=== PATIENT | male | born 1955 | race Caucasian/White ===

== ENCOUNTER 2016-08-14 12:33 | Outpatient (CLI) | payer MEDICARE, OTHER ==
[~2016-08-14] VITALS: Ht 167.6 cm; Wt 85.5 kg
[~2016-08-14 12:33] MED LIST: AGM875T PO; ASP325T PO; ASP81TEC; ASPI-586 PO; ATOR40TA70 PO; B12; B12 PO; CALC-80 PO; CALC600T; CALC600T PO; CEPH500C PO; CHLO500T2; CLOP75TA; CLPD75T PO; CYCL10TA9; D-3; D-3 PO; DEXL60CA3; DOCU100T7 PO; DULO60CA6; DULO60CA6 PO; FENO134C PO; FENO135C PO; GABA800T2 PO; HYDR-623; ISM60TCR PO; ISOS30TA3 PO; L.AC1CAP6 PO; LACT1TAB19 PO; LAMO100T65 PO; LEVE10006 PO; LEVE500T6 PO; LOVAZA 1 GM; METO25TA2 PO; MTP25TSR; MULT-301 PO; MULT-608; MULTIVITAMIN PO; MV,C1TAB21 PO; NAPR-248; NF-LOVAZAC; NF-LOVAZAC PO; NITR0.4T SL; NORCO 10/325; OXYC-12 PO; OXYC-309 PO; OXYC15TA79 PO; PANT40TA PO; POLY119P PO; PRAS10TA6 PO; PROP1TAB77; RANEXA PO; RANO10003 PO; SERT50TA9 PO; TOPI200T19 PO; TPR100T; TPR100T PO; UBIDECARENONE PO; [UNRECOGNIZED DRUG - CODE] PO; [UNRECOGNIZED DRUG - OTHER] PO
--- OUTSIDE RECORDS SUMMARY | 2016-08-14 12:36 | XMS REPORT | Continuity of Care Document ---
Author Author [facility] Organization [facility] Address Unknown Phone Unavailable Care Team Providers Care Alignment Mechanic Name Role Phone TOBIAS DEGROOT DO PCP Insurance Providers Payer Name Policy Number Subscriber Name Relationship [employer] [id number] Diamond Gómez Jr 18 Self / Same As Patient Enter Insurance Name [id number] Diamond Gómez Jr 18 Self / Same As Patient Advance Directives Directive Response Recorded Date/Time Advance Directives Yes 02/11/16 12:00pm Health Care Power of Orchestra Teacher No 02/11/16 12:00pm Organ Donor Yes 02/11/16 12:00pm Resuscitation Status Full Code 02/11/16 12:00pm Problems Active Problems Medical Problem Onset Date Status Dog bite Unknown Acute Puncture wound - injury Unknown Acute Medications Current Home Medications Medication Dose Units Route Directions Days/Qty Instructions Start Date Topiramate 100 Mg 100 Mg Oral Give Every 12 Hrs On Schedule 02/07/11 Fenofibrate (Lofibra) 134 Mg 134 Mg Oral Daily 07/01/13 Pantoprazole Sodium 40 Mg 40 Mg Oral Daily 07/01/13 Cyanocobalamin 2,000 Mcg 2,000 Mcg Oral Daily 12/04/13 Polyethylene Glycol 119 Gm 17 Gm Oral Bedtime as needed for Constipation PRN CONSTIPATION 12/04/13 Aspirin 81 Mg 81 Mg Oral Daily 06/21/15 Oxycodone Hcl 15 Mg 15 Mg Oral As Needed 06/21/15 Multivitamin 1 Each 1 Each Oral Daily 06/21/15 Sertraline Hcl 50 Mg 50 Mg Oral Daily 06/21/15 Ranolazine 1,000 Mg 1,000 Mg Oral Twice A Day 01/31/16 Nitroglycerin 0.4 Mg 0.4 Mg Sublingual As Needed as needed for Chest Pain 01/31/16 Sanju & Charles Matthewslactis 1 Each 1 Each Oral Daily 01/31/16 Levetiracetam 500 Mg 500 Mg Oral Twice A Day 01/31/16 Cephalexin 500 Mg 1 Cap Oral Three Times A Day 02/11/16 Past Home Medications Medication Directions Ordered Status [Lovaza 1 Gm] , 06/09/08 Discontinued [[place] 10/325] , 06/09/08 Discontinued Topiramate 100 Mg Tablet, 06/09/08 Discontinued Ecjdf-6-Awcp Ethyl Esters 1 Gm Capsule, 01/24/09 Discontinued Acetaminophen/Hydrocodone Bitart 1 Tab Tablet, 01/24/09 Discontinued Dexlansoprazole 60 Mg Cap., 01/24/09 Discontinued Metoprolol Succinate (Metoprolol Er 25MG) 25 Mg Tab, 01/24/09 Discontinued Cyclobenzaprine Hcl (Flexeril) 10 Mg Tablet, 01/24/09 Discontinued Chlorzoxazone 500 Mg Tablet, 01/24/09 Discontinued Naproxen 500 Mg Tablet., 01/24/09 Discontinued Propoxyphene Hcl/Acetaminophen 1 Tab Tablet, 01/24/09 Discontinued Fenofibric Acid (Choline) 135 Mg Capsule., 135 Mg Oral Daily 12/01/09 Discontinued Isosorbide Mononitrate (Imdur) 60 Mg Tab.sr.24h, 1 Each Oral Daily 12/01/09 Discontinued Pantoprazole Sodium 40 Mg Tablet., 40 Mg Oral Daily 12/01/09 Discontinued Isosorbide Mononitrate (Imdur) 30 Mg Tab.sr.24h, 1 Each Oral Bedtime Discontinued Aspirin 325 Mg Tab, 325 Mg Oral Daily 02/07/11 Discontinued Clopidogrel Bisulfate 75 Mg Tablet, 1 Each Oral Daily 02/07/11 Discontinued Duloxetine Hcl 60 Mg Capsule., 60 Mg Oral Daily 02/07/11 Discontinued Isosorbide Mononitrate (Imdur) 60 Mg Tab.sr.24h, 60 Mg Oral Daily 02/07/11 Discontinued Metoprolol Tartrate (Lopressor) 25 Mg Tablet, 25 Mg Oral Daily 02/07/11 Discontinued Oxycodone Hcl/Acetaminophen 1 Each Tablet, 2 Tab Oral Every 4HRS as needed for Pain 02/07/11 Discontinued Calcium Carbonate 600 Mg Tablet, 600 Mg Oral Daily 02/07/11 Discontinued [Multivitamin] , 1 Oral Daily 02/07/11 Discontinued Wehvr-7-Bhwg Ethyl Esters 1 Gm Capsule, 1 Each Oral Four Times Daily Discontinued [B12] , 1000 Mg Oral Daily 02/07/11 Discontinued [D-3] , 2000 Units Oral Daily 02/07/11 Discontinued Prasugrel Hydrochloride 10 Mg Tablet, 10 Mg Oral Daily 07/01/13 Discontinued Lamotrigine 100 Mg Tab.er.24, 150 Mg Oral Twice A Day 07/01/13 Discontinued Calcium Carbonate/Vitamin D3 1 Each Tablet, 1 Tab Oral Daily 07/01/13 Discontinued Atorvastatin Calcium 40 Mg Tablet, 40 Mg Oral Daily 07/01/13 Discontinued Amoxicillin/Clavulanate K 875 Mg Tab, 1 Tab Oral Twice A Day 07/01/13 Discontinued Gabapentin 800 Mg Tablet, 800 Mg Oral Twice A Day 12/04/13 Discontinued [Ranexa] , 500 Mg Oral Twice A Day 12/04/13 Discontinued [Coq-10/ L-Carnitine] , 200 Mg Oral Daily 12/04/13 Discontinued Mv,Ca,Min/Iron Fum/Fa/Lyco/Lut 1 Each Tablet, 1 Tab Oral Daily 12/04/13 Discontinued Lactobacillus Acidophilus 1 Each Tablet, 1 Tab Oral Daily 12/04/13 Discontinued Docusate Sodium 100 Mg Tablet, 100 Mg Oral Bedtime as needed for Constipation 12/04/13 Discontinued Oxycodone Hcl/Acetaminophen 1 Each Tablet, 1-2 Tab Oral Q4-6HR as needed for Pain 12/11/13 Discontinued Levetiracetam 1,000 Mg Tablet, 1000 Mg Oral Twice A Day 01/31/16 Discontinued Social History Social History Problem Response Recorded Date/Time Alcohol Use Denies Use 06/23/2015 10:40am Recreational Drug Use No 06/23/2015 10:40am Recent Foreign Travel No 12/10/2013 8:30am Recent Infectious Disease Exposure No 12/10/2013 8:30am Hospitalization with Isolation Denies 12/13/2013 2:28pm Sexually Transmitted Disease No 02/11/2016 12:00pm HIV/AIDS No 02/11/2016 12:00pm Smoking Status Never a Smoker 02/11/2016 12:00pm Sexually Transmitted Disease No 02/11/2016 12:00pm Hospitalization with Isolation Denies 12/13/2013 2:28pm Hx Sexually Transmitted Disorders No 01/31/2011 10:11am Query Response Start Date Stop Date Smoking Status Never a Smoker Hospital Discharge Instructions No hospital discharge instructions. Plan of Care Discharge Date 02/11/16 4:25pm Instructions/Education Provided ANESTHESIA INSTRUCTIONS POSTOP DR. DAUGHERTY-POST OP INSTRUCTIONS Prescriptions See Medication Section Functional Status No functional status results. Allergies, Adverse Reactions, Alerts Allergen Type Severity Reaction Status Last Updated Lamotrigine Allergy Intermediate RASH Active 06/21/15 TUNA Allergy Severe THROAT SWELLS Active 06/21/15 Immunizations No immunization records. Vital Signs Acute Vital Signs Vital Response Date/Time Temperature (Fahrenheit) 97.3 degrees F (97.6 - 99.5) 02/11/2016 4:25pm Temperature (Calculated Celsius) 36.33430 degrees C (36.4 - 37.5) 02/11/2016 4:10pm Temperature Source Temporal 02/11/2016 4:25pm Pulse Rate (adult) 65 bpm (60 - 90) 02/11/2016 4:25pm Respiratory Rate 18 bpm (12 - 24) 02/11/2016 4:25pm O2 Sat by Pulse Oximetry 98 % (88 - 100) 02/11/2016 4:25pm Blood Pressure 115/71 mm Hg 02/11/2016 4:25pm Blood Pressure Mean 102 mm Hg 02/11/2016 12:00pm Pain Numeric Pain Scale 2 02/11/2016 4:25pm Pain Intensity 0 02/11/2016 4:10pm Height (Feet) 5 feet 02/11/2016 12:00pm Height (Inches) 6.00 inches 02/11/2016 12:00pm Height (Calculated Centimeters) 167.311532 cm 02/11/2016 12:00pm Weight (Pounds) 188 pounds 02/11/2016 12:00pm Weight (Ounces) 7.0 oz 02/11/2016 12:00pm Weight (Calculated Grams) 44068.81 gm 02/11/2016 12:00pm Weight (Calculated Kilograms) 85.035377 kilograms 02/11/2016 12:00pm Calculated BMI 30.4 02/11/2016 12:00pm Capillary Refill Capillary Refill Less Than 3 Seconds 02/11/2016 12:00pm Results Pending Microbiology Results Procedure Source Collection Date/Time Procedures Procedure Status Date Provider(s) Correction of hammer toe of both feet Completed 02/11/16 JESUS DAUGHERTY DPM Encounters Encounter Location Arrival/Admit Date Discharge/Depart Date Attending Provider Departed [facility] 02/11/16 11:12am 02/11/16 4:25pm JESUS DAUGHERTY DPM Departed Clinic [facility] 01/31/16 11:23am 01/31/16 12: 23pm JESUS DAUGHERTY DPM
[2016-08-14 13:04] VITALS: BP 110/80
[2016-08-14] MEDS ORDERED: BUPIVACAINE 0.25% 30 ML (SENSORCAINE) VIAL ONE (13:04)
[2016-08-14] MEDS ORDERED: LIDOCAINE 1% INJ 20 ML (XYLOCAINE) VIAL ONE (13:04)
[2016-08-14] MEDS ORDERED: TRIAMCINOLONE ACET (KENALOG-40) 40 MG/ML 1 ML VIAL ONE (13:04)
[2016-08-14 13:26] VITALS: BP 129/87
--- NOTE | 2016-08-14 14:45 | Pain Medicine-Procedure ---
Procedure Pre-Op/Post-Op Diagnosis Diagnosis: disc disorder with radiculopathy, lumbar Indications for Operation Low back pain Attending Surgeon Solomon Procedure Date of Service: Aug 14, 2016 Procedure: Lumbar Epidural Steroid Injection at the L5-S1 level under Fluoroscopic Guidance Procedure: Patient was identified in the holding area. After risks, benefits, and alternatives were discussed with the patient, informed consent was obtained. Patient was brought to the fluoroscopy suite and placed prone on the procedure room table. A time out was performed. Vital signs were monitored throughout the procedure. The patients low back was prepped and draped in the usual sterile fashion. The patients skin was anesthetized using 2% Lidocaine. A Tuohy needle was inserted and advanced to the L5-S1 epidural space under fluoroscopic guidance using the loss of resistance technique and intermittent projection of fluoroscopy. There was no paresthesia with needle placement. The needle position was confirmed in both the AP and lateral view. After negative aspiration 2ml of contrast was injected under live fluoroscopy which showed good spread of the contrast in the epidural space at the appropriate level, there was no intravascular or subarachnoid spread. Again, after negative aspiration for heme or CSF, 2 ml of 0.25% Bupivicaine, 2ml of preservative free normal saline, and 80mg of Kenalog was injected. The needle was removed and a sterile bandage was placed and the patient was transferred to the recovery area in stable condition. After a brief period of observation, patient was discharged to home with no new neurological deficits and no apparent complications. Complications None VENU VIVEROS MD Aug 14, 2016 2:44 pm
== END 2016-08-14 13:27 | disposition home or self-care (01) ==
LOC: CARD 12:33
PROVIDERS: ATTEND Pain Medicine Pain Medicine
DX: M51.16 Intervertebral disc disorders with radiculopathy, lumbar region (principal)
CPT/HCPCS: 62323

== ENCOUNTER → 2016-09-06 | Outpatient (CLI) | payer MEDICARE, OTHER ==
--- NOTE | 2016-09-06 13:56 | Diagnostic Imaging Report ---
Right wrist INDICATION: Wrist pain after a fall. Three views were obtained. FINDINGS: There is no fracture, dislocation, or acute bony abnormality evident. There is mild degenerative disease of the radiocarpal joint. The soft tissues are unremarkable. IMPRESSION: There is no evidence for an acute bony abnormality. Dictated by: Dictated on workstation # [id number]
== END ==
LOC: RAD 10:13
PROVIDERS: ATTEND Family Medicine
DX: M25.531 Pain in right wrist (principal)
CPT/HCPCS: 73110

== ENCOUNTER → 2016-12-25 | Outpatient (CLI) | payer MEDICARE, OTHER ==
--- NOTE | 2016-12-27 17:52 | ELECTROENCEPHALOPATHY REPORT ---
PROCEDURE PHYSICIAN: DANG WONG DATE OF PROCEDURE: 12/25/2016 Mr. Tien Gómez is a 61-year-old male. He has been having sharp, severe pain in the right side of his head from behind up to the eyes that lasted for 3 to 4 days. The pain is affecting the left side as well especially behind the left eye. This study was requested to evaluate for epileptiform activity. The background rhythm consisted of 10 Hz, 50 to 70 microvolts in amplitude, bilaterally symmetrical over the vortex region which was reactive to eye opening. Intermix were few sharp transients in left temporal area. The patient was awake, drowsy and asleep during this recording. Hyperventilation was performed and there was no build-up of diffuse focal slow wave activity. Intermittent photic stimulation was done at various flash frequencies and no photic driving response was seen. IMPRESSION: This EEG is abnormal in awake and sleepy states. The sharp transients as described above could be suggestive of a seizure focus in that area though clinical correlation is suggested. Job ID: [id number] Dictated Date: 12/27/2016 14:07:30 Car Trimmer Date: 12/27/2016 17:47:43 / mc
== END ==
LOC: RT 09:07
PROVIDERS: ATTEND Psychiatry & Neurology Neurology
DX: R56.9 Unspecified convulsions (principal)
CPT/HCPCS: 95819

== ENCOUNTER 2017-11-08 08:44 | Day surgery (SDC) | payer MEDICARE, OTHER ==
[~2017-11-08] VITALS: Ht 167.6 cm; Wt 85.5 kg
[2017-11-08] VITALS (11 sets, daily range): BP systolic 93–135; BP diastolic 61–94
--- OUTSIDE RECORDS SUMMARY | 2017-11-08 08:48 | XMS REPORT | Continuity of Care Document ---
Author Author [facility] Organization [facility] Address Unknown Phone Unavailable Allergies Active Description Code Type Severity Reaction Onset Reported/Identified Relationship to Patient Clinical Status Yes [id number] (TUNA OIL) [id number] (TUNA OIL) Mild N/A 01/24/2009 Yes TUNA TUNA Severe THROAT SWELLS 06/21/2015 Yes lamotrigine [id number] Drug Allergy Moderate RASH 06/21/2015 Yes Fish Containing Products Fish Containing Products Drug Allergy Severe ANAPHYLAXIS TO TUNA 01/03/2016 Yes lamotrigine lamotrigine Drug Allergy Severe RASH 01/03/2016 Medications There is no data. Problems Date Dx Coded Attending Type Code Diagnosis Diagnosed By 01/05/2011 Ot 722.4 CERVICAL DISC DEGEN 01/05/2011 Ot V57.1 PHYSICAL THERAPY NEC 01/31/2011 Ot 311 DEPRESSIVE DISORDER NEC 01/31/2011 Ot 345.90 EPILEPSY UNSPEC W/O MENTION INTRACTABLE 01/31/2011 Ot 401.9 HYPERTENSION NOS 01/31/2011 Ot 414.01 CORONARY ATHEROSCLEROSIS OF [place] CORON 01/31/2011 Ot 435.9 TRANS CEREB ISCHEMIA NOS 01/31/2011 Ot 530.81 ESOPHAGEAL REFLUX 02/07/2011 Ot 278.4 HYPERVITAMINOSIS D 02/07/2011 Ot 311 DEPRESSIVE DISORDER NEC 02/07/2011 Ot 327.23 OBSTRUCTIVE SLEEP APNEA (ADULT) (PEDIATR 02/07/2011 Ot 345.90 EPILEPSY UNSPEC W/O MENTION INTRACTABLE 02/07/2011 Ot 401.9 HYPERTENSION NOS 02/07/2011 Ot 414.01 CORONARY ATHEROSCLEROSIS OF [place] CORON 02/07/2011 Ot 438.89 OTH LATE EFFECT-CEREBROVASCULAR DISEASE 02/07/2011 Ot 530.81 ESOPHAGEAL REFLUX 02/07/2011 Ot 721.0 CERVICAL SPONDYLOSIS 02/07/2011 Ot 721.3 LUMBOSACRAL SPONDYLOSIS 02/07/2011 Ot 728.87 MUSCLE WEAKNESS (GENERALIZED) 02/07/2011 Ot 781.2 ABNORMALITY OF GAIT 02/07/2011 Ot 784.0 HEADACHE 02/07/2011 Ot V57.1 PHYSICAL THERAPY NEC 02/07/2011 Ot V57.21 ENCOUNTER FOR OCCUPATIONAL THERAPY 07/01/2013 PEGGY HARLEY SPANISH TRANSLATOR Ot 881.02 OPEN WOUND OF WRIST 07/01/2013 PEGGY HARLEY SPANISH TRANSLATOR Ot E000.8 OTHER EXTERNAL CAUSE STATUS 07/01/2013 PEGGY HARLEY SPANISH TRANSLATOR Ot E029.2 ROUGH HOUSING AND HORSEPLAY 07/01/2013 PEGGY HARLEY SPANISH TRANSLATOR Ot E849.0 ACCIDENT IN HOME 07/01/2013 PEGGY HARLEY SPANISH TRANSLATOR Ot E906.0 DOG BITE 07/01/2013 PEGGY HARLEY SPANISH TRANSLATOR Ot V06.1 [id number], COMBINED [ 12/13/2013 LOWELL KELLY, ALFONSO Parsons Ot 305.1 TOBACCO USE DISORDER 12/13/2013 LOWELL KELLY, ALFONSO Parsons Ot 414.01 CORONARY ATHEROSCLEROSIS OF [place] CORON 12/13/2013 LOWELL KELLY, ALFONSO Parsons Ot 715.36 LOC OSTEOARTH NOS-L/LEG 12/13/2013 LOWELL KELLY, ALFONSO Parsons Ot V12.54 PERSONAL HX OF TIA, CEREBRAL INFARCTION 12/13/2013 LOWELL KELLY, ALFONSO Parsons Ot V45.82 PERCUTANEOUS TRANSLUM CORON ANGIOPLASTY 03/04/2015 LOWELL KELLY, ALFONSO Parsons Ot 724.4 03/24/2015 LOWELL KELLY, ALFONSO Parsons Ot 724.4 06/23/2015 Ot 721.0 06/23/2015 Ot 780.50 06/23/2015 Ot 786.09 06/23/2015 LOWELL KELLY, ALFONSO Parsons Ot 715.36 06/23/2015 LOWELL KELLY, ALFONSO Parsons Ot 780.79 06/23/2015 LOWELL KELLY, ALFONSO Parsons Ot V57.1 06/23/2015 LOWELL KELLY, ALFONSO Parsons Ot V57.21 06/23/2015 LOWELL KELLY, ALFONSO Parsons Ot V72.63 06/23/2015 LOWELL KELLY, ALFONSO Parsons Ot V72.83 06/23/2015 LOWELL KELLY, ALFONSO Parsons Ot V74.8 06/23/2015 TOBIAS CHRISTY DO S Ot 784.0 06/23/2015 TOBIAS CHRISTY DO S Ot V12.41 06/23/2015 LOWELL KELLY, ALFONSO Parsons Ot 724.4 06/23/2015 LOWELL KELLY, ALFONSO Parsons Ot G40.909 EPILEPSY, UNSP, NOT INTRACTABLE, WITHOUT 06/23/2015 LOWELL KELLY, ALFONSO Parsons Ot M23.8X1 OTHER INTERNAL DERANGEMENTS OF RIGHT KNE 01/31/2016 WILLOW DPM, JESUS Q Ot M20.41 OTHER HAMMER TOE(S) (ACQUIRED), RIGHT FO 01/31/2016 WILLOW DPM, JESUS Q Ot M77.42 METATARSALGIA, LEFT FOOT 01/31/2016 WILLOW DPM, JESUS Q Ot Z01.818 ENCOUNTER FOR OTHER PREPROCEDURAL EXAMIN 01/31/2016 WILLOW DPM, JESUS Q Ot Z11.2 ENCOUNTER FOR SCREENING FOR OTHER BACTER 02/01/2016 WILLOW DPM, JESUS Q Ot M20.41 OTHER HAMMER TOE(S) (ACQUIRED), RIGHT FO 02/01/2016 WILLOW DPM, JESUS Q Ot M77.42 METATARSALGIA, LEFT FOOT 02/01/2016 WILLOW DPM, JESUS Q Ot Z01.818 ENCOUNTER FOR OTHER PREPROCEDURAL EXAMIN 02/01/2016 WILLOW DPM, JESUS Q Ot Z11.2 ENCOUNTER FOR SCREENING FOR OTHER BACTER 02/02/2016 Ot 721.0 CERVICAL SPONDYLOSIS 02/02/2016 Ot 780.50 SLEEP DISTURBANCE NOS 02/02/2016 Ot 786.09 RESPIRATORY ABNORM NEC 02/02/2016 LOWELL KELLY, ALFONSO Parsnos Ot 715.36 LOC OSTEOARTH NOS-L/LEG 02/02/2016 LOWELL KELLY, ALFONSO Parsons Ot 780.79 OTH MALAISE FATIGUE 02/02/2016 ALFONSO ETIENNE MD Ot V57.1 PHYSICAL THERAPY NEC 02/02/2016 ALFONSO ETIENNE MD Ot V57.21 ENCOUNTER FOR OCCUPATIONAL THERAPY 02/02/2016 ALFONSO ETIENNE MD Ot V72.63 PRE-PROCEDURAL LABORATORY EXAMINATION 02/02/2016 ALFONSO ETIENNE MD Ot V72.83 EXAM PRE-OPERATIVE NEC 02/02/2016 ALFONSO ETIENNE MD Ot V74.8 SCREEN-BACTERIAL DIS NEC 02/02/2016 TOBIAS CHRISTY DO S Ot 784.0 HEADACHE 02/02/2016 ORENDER DO, TOBIAS S Ot V12.41 HX BENIGN NEOPLASM/BRAIN 02/02/2016 ALFONSO ETIENNE MD Ot 724.4 LUMBOSACRAL NEURITIS NOS 02/02/2016 ALFONSO ETIENNE MD Ot M23.8X1 OTHER INTERNAL DERANGEMENTS OF RIGHT KNE 02/02/2016 ALFONSO ETIENNE MD Ot Z01.818 ENCOUNTER FOR OTHER PREPROCEDURAL EXAMIN 02/02/2016 ALFONSO ETIENNE MD Ot Z11.2 ENCOUNTER FOR SCREENING FOR OTHER BACTER 02/11/2016 WILLOW DPM, JESUS Q Ot M20.12 HALLUX VALGUS (ACQUIRED), LEFT FOOT 02/11/2016 WILLOW DPM, JESUS Q Ot M20.41 OTHER HAMMER TOE(S) (ACQUIRED), RIGHT FO 02/15/2016 WILLOW DPM, JESUS Q Ot M20.12 HALLUX VALGUS (ACQUIRED), LEFT FOOT 02/15/2016 WILLOW DPM, JESUS Q Ot M20.41 OTHER HAMMER TOE(S) (ACQUIRED), RIGHT FO 08/10/2016 Ot 780.50 SLEEP DISTURBANCE NOS 08/10/2016 Ot 786.09 RESPIRATORY ABNORM NEC 08/10/2016 ALFONSO ETIENNE MD Ot 715.36 LOC OSTEOARTH NOS-L/LEG 08/10/2016 ALFONSO ETIENNE MD Ot 780.79 OTH MALAISE FATIGUE 08/10/2016 ALFONSO ETIENNE MD Ot V57.1 PHYSICAL THERAPY NEC 08/10/2016 ALFONSO ETIENNE MD Ot V57.21 ENCOUNTER FOR OCCUPATIONAL THERAPY 08/10/2016 ALFONSO ETIENNE MD Ot V72.63 PRE-PROCEDURAL LABORATORY EXAMINATION 08/10/2016 ALFONSO ETIENNE MD Ot V72.83 EXAM PRE-OPERATIVE NEC 08/10/2016 ALFONSO ETIENNE MD Ot V74.8 SCREEN-BACTERIAL DIS NEC 08/10/2016 TOBIAS CHRISTY DO Ot 784.0 HEADACHE 08/10/2016 TOBIAS CHRISTY DO Ot V12.41 HX BENIGN NEOPLASM/BRAIN 08/10/2016 ALFONSO ETIENNE MD Ot 724.4 LUMBOSACRAL NEURITIS NOS 08/10/2016 ALFONSO ETIENNE MD Ot M23.8X1 OTHER INTERNAL DERANGEMENTS OF RIGHT KNE 08/10/2016 LOWELL KELLY, ALFONSO Parsons Ot Z01.818 ENCOUNTER FOR OTHER PREPROCEDURAL EXAMIN 08/10/2016 ALFONSO ETIENNE MD Ot Z11.2 ENCOUNTER FOR SCREENING FOR OTHER BACTER 08/14/2016 FELICE KELLY, VENU Latif Ot M51.16 INTERVERTEBRAL DISC DISORDERS W RADICULO 08/29/2016 VENU VIVEROS MD Ot M51.16 INTERVERTEBRAL DISC DISORDERS W RADICULO 09/07/2016 ORENDER DO, TOBIAS S Ot M25.531 PAIN IN RIGHT WRIST 09/08/2016 ORENDER DO, TOBIAS S Ot M25.531 PAIN IN RIGHT WRIST 09/08/2016 ORENDER DO, TOBIAS S Ot M25.531 PAIN IN RIGHT WRIST 10/03/2016 ORENDER DO, TOBIAS S Ot M25.531 PAIN IN RIGHT WRIST 11/02/2016 ORENDER DO, TOBIAS S Ot M25.531 PAIN IN RIGHT WRIST 12/14/2016 ORENDER DO, TOBIAS S Ot M25.531 PAIN IN RIGHT WRIST 12/18/2016 ORENDER DO, TOBIAS S Ot M25.531 PAIN IN RIGHT WRIST 12/27/2016 DANG WONG MD Ot R56.9 UNSPECIFIED CONVULSIONS 01/17/2017 DANG WONG MD Ot R56.9 UNSPECIFIED CONVULSIONS 02/09/2017 DANG WONG MD Ot R56.9 UNSPECIFIED CONVULSIONS Procedures Code Description Performed By Performed On 81.54 TOTAL KNEE REPLACEMENT 12/10/2013 Results Test Result Range CBC - 01/03/16 08:47 MEAN CELL HGB 30.0 pg 27.0-33.0 MEAN CELL HGB CONCENTRATION 34.0 g/dL 32.0-37.0 MEAN CELL VOLUME 88.2 fl 80.0-100.0 RED BLOOD CELL 4.57 m/cumm 4.00-6.00 RED CELL DISTRIBUTION WIDTH 13.9 % 11.0-15.6 WHITE BLOOD CELL 4.8 k/cumm 5.0-10.0 HEMOGLOBIN 13.7 gm/dL 14.0-18.0 HEMATOCRIT 40.3 % 40.0-54.0 PLATELET COUNT 219 k/cumm 150-450 PROTHROMBIN TIME WITH INR - 01/03/16 08:47 INTERNATIONAL NORMAL RATIO 1.0 0.9-1.1 PROTHROMBIN TIME 12.1 sec 10.0-12.9 METABOLIC PANEL, BASIC - 01/03/16 08:47 POTASSIUM 3.9 mmol/L 3.5-5.3 EST GFR (MDRD) > 60 mL/min > 59 ANION GAP 9 mmol/L 5-15 EST CrCl (CG) > 60 mL/min > 59 GLUCOSE 89 mg/dL 70-99 CALCIUM 9.5 mg/dL 8.5-10.1 BLOOD UREA NITROGEN 15 mg/dL 7-20 CREATININE 1.2 mg/dL 0.7-1.3 SODIUM 142 mmol/L 135-148 CHLORIDE 108 mmol/L 98-110 CARBON DIOXIDE 25 mmol/L 21-32 Methicillin resistant Staphylococcus aureus (MRSA) screening culture - 12:15 Methicillin resistant Staphylococcus aureus (MRSA) screening culture NEG NRG CBC W/DIFF - 04/26/17 08:19 EOSINOPHIL # 0.1 k/cumm 0.1-0.5 EOSINOPHIL % 2 % 2-4 GRANULOCYTE # 3.3 k/cumm 2.0-9.0 GRANULOCYTE % 65 % 50-75 LYMPHOCYTE # 1.3 k/cumm 1.0-4.0 LYMPHOCYTE % 25 % 20-30 MEAN CELL HGB 30.3 pg 27.0-33.0 MEAN CELL HGB CONCENTRATION 33.9 g/dL 32.0-37.0 MEAN CELL VOLUME 89.4 fl 80.0-100.0 MONOCYTE # 0.4 k/cumm 0.1-1.0 MONOCYTE % 8 % 4-6 RED BLOOD CELL 4.62 m/cumm 4.00-6.00 RED CELL DISTRIBUTION WIDTH 13.4 % 11.0-15.6 WHITE BLOOD CELL 5.1 k/cumm 5.0-10.0 HEMOGLOBIN 14.0 gm/dL 14.0-18.0 HEMATOCRIT 41.3 % 40.0-54.0 PLATELET COUNT 227 k/cumm 150-450 PROTHROMBIN TIME WITH INR - 04/26/17 08:19 INTERNATIONAL NORMAL RATIO 1.1 0.9-1.1 PROTHROMBIN TIME 12.2 sec 10.0-12.8 METABOLIC PANEL, BASIC - 04/26/17 08:19 POTASSIUM 4.1 mmol/L 3.5-5.3 EST GFR (MDRD) > 60 mL/min > 59 ANION GAP 12 mmol/L 5-15 GLUCOSE 89 mg/dL 70-99 CALCIUM 9.3 mg/dL 8.5-10.1 BLOOD UREA NITROGEN 17 mg/dL 7-20 CREATININE 1.1 mg/dL 0.7-1.3 SODIUM 143 mmol/L 135-148 CHLORIDE 108 mmol/L 98-110 CARBON DIOXIDE 23 mmol/L 21-32 LIPID PANEL - 04/26/17 08:19 CHOLESTEROL/HDL RATIO 4.1 < 5.0 LDL CHOLESTEROL 117 mg/dL < 100 VLDL CHOLESTEROL 21 mg/dL < 30 TRIGLYCERIDES 106 mg/dL < 150 CHOLESTEROL 182 mg/dL < 200 HDL CHOLESTEROL 44 mg/dL > 39 Encounters ACCT No. Visit Date/Time Discharge Status Pt. Type Provider Facility Loc./Unit Complaint [id number] 12/25/2016 09:07:00 12/25/2016 23:59:59 CLS Outpatient DANG WONG MD [facility] RT SEIZURE [id number] 09/06/2016 10:13:00 09/06/2016 23:59:59 CLS Outpatient TOBIAS CHRISTY DO [facility] RAD M25.531 PAIN IN RIGHT WRIST [id number] 08/14/2016 12:33:00 08/14/2016 13:27:00 DIS Outpatient VENU VIVEROS MD [facility] CARD M51.16 [id number] 02/11/2016 11:12:00 02/11/2016 16:25:00 DIS Outpatient SERGIO DAUGHERTY DPMIN Q [facility] [place] RIGHT; HYPERTROPY LEFT [id number] 01/31/2016 11:23:00 01/31/2016 12:23:00 DIS Outpatient SERGIO DAUGHERTY DPMIN Q [facility] PREOP RIGHT [place]; LEFT HYPERTROPHY [id number] 06/23/2015 09:41:00 06/23/2015 14:55:00 DIS Outpatient ALFONSO ETIENNE MD [facility] RIGHT KNEE ADHESIONS [id number] 06/21/2015 13:30:00 06/21/2015 23:59:59 CLS Outpatient ALFONSO ETIENNE MD [facility] PREOP RIGHT KNEE ADHESIONS [id number] 02/11/2015 15:13:00 02/11/2015 23:59:59 CLS Outpatient ALFONSO ETIENNE MD [facility] RAD LUMBAR RADICULOPATHY [id number] 04/01/2014 10:54:00 04/01/2014 23:59:59 CLS Outpatient TOBIAS CHRISTY DO [facility] RAD HX BRAIN TUMOR, CEPHALGIA [id number] 12/10/2013 07:45:00 12/13/2013 14:00:00 DIS Inpatient ALFONSO ETIENNE MD [facility] SURGICAL RIGHT KNEE DJD [id number] 12/04/2013 09:48:00 12/04/2013 23:59:59 CLS Outpatient ALFONSO ETIENNE MD [facility] PREOP RIGHT KNEE DJD [id number] 07/01/2013 15:35:00 07/01/2013 17:30:00 DIS Emergency PEGGY HARLEY APRN [facility] ER DOG BITE; HAND LAC [id number] 11/28/2011 21:00:00 Document Registration [id number] 01/31/2011 09:13:00 Document Registration [id number] 01/26/2011 10:44:00 Document Registration [id number] 01/05/2011 13:31:00 Document Registration [id number] 11/28/2010 09:34:00 Document Registration [id number] 04/26/2017 06:16:00 04/26/2017 20:10:00 DIS Outpatient Sanya KELLY, [facility] & ER E.CVLO [id number] 01/03/2016 08:06:00 01/03/2016 17:30:00 DIS Outpatient Jacquelin KELLY, [facility] & ER E.CVLO [id number] 02/12/2015 02:42:20 ACT Document Registration 07/201708/30/2017 08:42:01 08/30/2017 23:59:59 CLS Outpatient Tobias Christy
[2017-11-08] MEDS ORDERED: HEParin (CATH LAB) 2,000 ML IV ONE (08:51)
[2017-11-08] MEDS ORDERED: NS IV 1000 ML 1,000 ML ONE (08:51)
[2017-11-08] MEDS ORDERED: NS IV 1000 ML 1,000 ML IV SCH ×2 (08:57→12:15)
[2017-11-08 09:26] LABS: HEMOGLOBIN 14.6 G/DL (13.3-17.7); MEAN PLATELET VOLUME 10.4 FL (7.4-10.4); RED BLOOD COUNT 4.93 10^6/uL (4.35-5.85); RED CELL DISTRIBUTION WIDTH 14.9 % (10.0-14.5); WHITE BLOOD COUNT 5.6 10^3/uL (4.3-11.0)
[2017-11-08] MEDS ORDERED: CHOL200025 PO (09:34)
[2017-11-08] MEDS ORDERED: LISI2.5T PO (09:34)
[2017-11-08] MEDS ORDERED: METO-387 PO (09:34)
[2017-11-08] MEDS ORDERED: ATOR40TA PO (09:34)
[2017-11-08 09:38] LABS: INR 1.1 (0.8-1.4)
[2017-11-08] MEDS ORDERED: POLY17PO6 PO (09:40)
[2017-11-08] MEDS ORDERED: DICL100G18 TP (09:40)
[2017-11-08] MEDS ORDERED: [UNRECOGNIZED DRUG - CODE] PO (09:40)
[2017-11-08] MEDS ORDERED: TOPI100T11 PO (09:40)
[2017-11-08] MEDS ORDERED: MULT-35 PO (09:40)
[2017-11-08 09:44] LABS: ALANINE AMINOTRANSFERASE 17 U/L (0-55); ALBUMIN 4.8 GM/DL (3.2-4.5); ALKALINE PHOSPHATASE 67 U/L (40-136); BILIRUBIN,TOTAL 0.7 MG/DL (0.1-1.0); BUN/CREATININE RATIO 15; CALCIUM 9.5 MG/DL (8.5-10.1); CARBON DIOXIDE 21 MMOL/L (21-32); CHLORIDE 111 MMOL/L (98-107); CREATININE SERUM 0.82 MG/DL (0.60-1.30); GFR ESTIMATED > 60; GLUCOSE 92 MG/DL (70-105); POTASSIUM 3.9 MMOL/L (3.6-5.0); SODIUM 142 MMOL/L (135-145); TOTAL PROTEIN 7.3 GM/DL (6.4-8.2)
[2017-11-08] MEDS ORDERED: MIDAZOLAM 5 MG/5 ML (VERSED) VIAL ONE (11:27)
[2017-11-08] MEDS ORDERED: fentaNYL INJECTION 100 MCG/2 ML AMP ONE (11:27)
--- NOTE | 2017-11-08 11:53 | Cardiac Procedure Note-CS/ASA ---
Pre-Procedure Note Pre-Op Procedure Note H&P Reviewed The H&P was reviewed, patient examined and no changes noted. Date H&P Reviewed: November 08, 2017 Time H&P Reviewed: 10:30 Conscious Sedation Pre-Proced Time Reviewed: 10:30 ASA Class: 3 Airway Mallampati Classification: ([place] appropriate class) I. II. III, IV Lungs Heart ASA score ASA 1: a normal healthy patient ASA 2: a patient with a mild systemic disease (mid diabetes, controlled hypertension, obesity ASA 3: a patient with a severe systemic disease that limits activity (angina , COPD, prior Myocardial infarction) ASA 4: a patient with an incapacitating disease that is a constant threat to life (CHF, renal failure) ASA 5: a moribund patient not expected to survive 24 hrs. (ruptured aneurysm) ASA 6: a declared brain patient whose organs are being harvested. For emergent operations, add the letter E after the classification Grade 1 Sedation Plan: Analgesia, Amnesia, Plan communicated to team members, Discussed options with patient/fam, Discussed risks with patient/fam Note The patient is an appropriate candidate to undergo the planned procedure, sedation, and anesthesia. The patient immediately re-assessed prior to indication. Shelton ESTRADA MD November 08, 2017 11:53 am
[2017-11-08] MEDS ORDERED: PATIENT MAY USE OWN MEDS, ALL PO SCH (12:15)
--- NOTE | 2017-11-08 12:15 | Coronary Angiography Report ---
Coronary Angiography Report DATE OF PROCEDURE: 11/08/17 INDICATION: Unstable angina, previous history of TX and PCI. PREOPERATIVE DIAGNOSIS: Unstable angina, previous history of TX and PCI. POSTOPERATIVE DIAGNOSIS: Patent stents, no significant severe CAD. HISTORY: This is a 62-year-old gentleman who has previous history of multiple PCI and TX. He presented to the office with prolonged episode of atypical chest pain. Working diagnosis was unstable angina. Therefore, the patient was scheduled for coronary angiography. PROCEDURES PERFORMED: 1.Coronary angiography. 2.Left heart catheterization. 3. Aortic arch angiography. COMPLICATIONS: None. SPECIMENS: None. ESTIMATED BLOOD LOSS: 10 mL ANESTHESIA: Conscious sedation ANTICOAGULATION: None. CONTRAST: 65 mL. FLUOROSCOPY: 3 minutes. FLOUROSCOPY DOSE: [id number]. PROCEDURE DETAILS: The patient is a 62 male and was brought to the drop crew laborer after informed consent was taken. All the risks and complications were explained in detail; this included the risk of bleeding, vascular damage, stroke , TX and even . The patient was draped and prepped in the usual sterile fashion. Access was gained in the right femoral artery with a 5 Czech sheath. Right coronary angiography, left heart catheterization, aortic arch angiogram was done with a JR4 catheter. Left coronary angiography was performed with JL4 catheter. FINDINGS: 1.Left main: Patent. 2.LAD: Patent mid LAD stent with very mild in-stent restenosis. 3.Left circumflex artery: Patent OM1 stent with mild distal edge disease. 4.RCA: Patent stent in the mid RCA with no significant in-stent restenosis. 5.Left heart catheterization: Aortic pressure 98/59 mmHg. LV pressure 91/2 mmHg. LVEDP 8 mmHg. Normal LV function with no wall motion abnormalities. No gradient across the aortic valve. 6. Aortic arch angiogram: No evidence of dissection or aneurysm noted. Patent proximal segments of the brachiocephalic artery, common carotid artery and left subclavian artery. CONCLUSIONS: Patent stents with no significant CAD. Normal LV function. Continue secondary prevention measures. Petros Villalta MD, FACP, FACC, [facility] Interventional Cardiology Shelton VILLALTA MD November 08, 2017 12:15 pm
--- NOTE | 2017-11-08 12:18 | Discharge Inst-Post CATH ---
Discharge Inst-CATH Post Cardiac Cath D/C Inst Follow Up/Plan Dr Villalta in six weeks CARDIAC CATH DISCHARGE INSTRUCTIONS *Hold Metformin for 48 hours post heart cath. ACTIVITY * Go Home directly and rest. * Limit activity of the leg (or wrist if it was used) for 7 days including aerobics, swimming, jogging, bicycling, etc. * Restrict stair-climbing for 7 days if possible, if not, climb up with your non -cath leg, then bring together on the same step. * Avoid lifting, pushing, pulling or excessive movement of the affected extremity for 7 days. * Customary sexual activity may be resumed after 2 days-use caution not to use a position that strains or causes pain to the affected extremity. * No driving for 24 hours. * NO SMOKING. * Avoid straining for bowel movements for 7 days. * Gentle walking on level ground is allowed. * Returning to work will depend on the type of procedure and the results. Your doctor will discuss this with you. CALL YOUR DOCTOR FOR ANY OF THE FOLLOWING: *If bleeding from the puncture site occurs- Apply gentle pressure to site with clean cloth and call your doctor or EMS. * If a knot or lump forms under the skin, increases in size, or causes pain. * If bruising appears to be worsening or moving further down your leg instead of disappearing. * Temperature above 101 F. CARE OF YOUR GROIN INCISION; * Bruising or purple discoloration of the skin near the puncture site is common. * You may shower only, no bathtub bathing for 5 days. Be careful to avoid slipping as your leg may feel stiff. * If a closure device was used on your femoral artery, please see the attached guide regarding care of the device and your leg. * REMOVE the dressing from your groin the next day after your procedure in the shower. CARE OF YOUR WRIST INCISION; * Bruising or purple discoloration of the skin near the puncture site is common. * You may shower. * DO NOT submerge wrist. * Remove dressing in 24 hours. Shelton VILLALTA MD November 08, 2017 12:18 pm
--- NOTE | 2017-11-08 12:20 | Cardiology Discharge Summary ---
Diagnosis/Chief Complaint Date of Admission 11/08/2017 Date of Discharge 11/08/2017 Admission Diagnosis Chest pain, previous history of PCI and CT Final/Discharge Diagnosis Patent stents, no significant obstructive CAD. Chief Complaint/HPI Chief Complaint/HPI This is a 62-year-old gentleman who has previous history of multiple PCI and CT. He complained of chest pain which was typical and prolonged. Coronary angiography was recommended Discharge Summary Procedures Coronary angiography showed patent stent in the mid RCA, mid LAD and OM1. No significant focal obstructive lesion. Normal LV function. Discharge Physical Examination Stable Hospital Course Unremarkable Pending Labs Laboratory Tests 11/08/17 09:20: White Blood Count 5.6, Red Blood Count 4.93, Hemoglobin 14.6, Hematocrit 42, Mean Corpuscular Volume 84, Mean Corpuscular Hemoglobin 30, Mean Corpuscular Hemoglobin Concent 35, Red Cell Distribution Width 14.9, Platelet Count 199, Mean Platelet Volume 10.4, Prothrombin Time 14.0, INR Comment 1.1, Activated Partial Thromboplast Time 32, Sodium Level 142, Potassium Level 3.9, Chloride Level 111, Carbon Dioxide Level 21, Anion Gap 10, Blood Urea Nitrogen 12, Creatinine 0.82, Estimat Glomerular Filtration Rate > 60, BUN/Creatinine Ratio 15, Glucose Level 92, Calcium Level 9.5, Total Bilirubin 0.7, Aspartate Amino Transf (AST/SGOT) 20, Alanine Aminotransferase (ALT/SGPT) 17, Alkaline Phosphatase 67, Total Protein 7.3, Albumin 4.8 Discussion & Recommendations Discussion Discharge instructions were discussed at length. Follow up appt.: Dr. Villalta in 6 weeks. Dicharge Diet: Cardiac Diet Activity as Tolerated: Yes Home Medications Reviewed patient Home Medication Reconciliation performed by pharmacy medication reconciliations measurement and sensing technician and/or nursing. Patients Allergies have been reviewed. Discharge Home Medications: Reviewed and agree with Discharge Medication list on patient's Discharge Instruction sheet Condition at discharge Stable. Instructions to patient/family Dr Villalta in six weeks Shelton VILLALTA MD November 08, 2017 12:20 pm
[2017-11-09] MEDS ORDERED: ASPIRIN E.C. 81 MG (ECOTRIN) TAB PO SCH (09:00)
== END 2017-11-08 16:00 | disposition home or self-care (01) ==
LOC: CATH 08:44 → SURG 12:31 → CATH 16:00
PROVIDERS: ATTEND Internal Medicine Interventional Cardiology
DX: R07.89 Other chest pain (principal); I25.10 Atherosclerotic heart disease of native coronary artery without angina pectoris; Z95.5 Presence of coronary angioplasty implant and graft; E78.1 Pure hyperglyceridemia; E78.5 Hyperlipidemia, unspecified; I10 Essential (primary) hypertension; R42 Dizziness and giddiness; R53.83 Other fatigue; E66.3 Overweight; Z68.30 Body mass index [BMI] 30.0-30.9, adult; Z86.73 Personal history of transient ischemic attack (TIA), and cerebral infarction without residual deficits; Z79.82 Long term (current) use of aspirin; Z79.899 Other long term (current) drug therapy; Z87.891 Personal history of nicotine dependence
CPT/HCPCS: 36221; 36415; 80053; 85027; 85610; 85730; 87081; 93005; 93458

== ENCOUNTER → 2018-02-26 | Outpatient (CLI) | payer MEDICARE, OTHER ==
[~2018-02-26] MED LIST changes: +ATOR40TA PO; +CHOL200025 PO; +DICL100G18 TP; +LISI2.5T PO; +METO-387 PO; +MULT-35 PO; +POLY17PO6 PO; +TOPI100T11 PO; +[UNRECOGNIZED DRUG - CODE] PO
--- NOTE | 2018-02-26 14:02 | Diagnostic Imaging Report ---
INDICATION: Right-sided neck pain. Vertigo. COMPARISON: None FINDINGS: Frontal, lateral, swimmers and odontoid views of the cervical spine were submitted. The cervical spine is visualized up to the C7/T1 level on the lateral projection. There is normal vertebral height and alignment. There is no evidence of fracture or bone destruction. No prevertebral soft tissue swelling is seen. Mild multilevel degenerative changes are noted. The open-mouth view demonstrates normal C1/C2 alignment. IMPRESSION: 1. Normal cervical spine series. 2. Mild multilevel degenerative changes. Dictated by: Dictated on workstation # [id number]
== END ==
LOC: RAD 11:25
PROVIDERS: ATTEND Family Medicine
DX: M47.812 Spondylosis without myelopathy or radiculopathy, cervical region (principal)
CPT/HCPCS: 72040

== ENCOUNTER → 2018-02-28 | Outpatient (CLI) | payer MEDICARE, OTHER ==
[~2018-02-28] MED LIST changes: +CATHETER FLUSH 10 ML SYR IV PRN; +IOHEXOL 350 MG/ML 100 ML (OMNIPAQUE 350) VIAL IV ONE; +NS 250 ML (IVPB) BAG IV ONE; +RECEIVED CONTRAST (Hold Metformin) IV SCH
--- NOTE | 2018-02-28 19:19 | Diagnostic Imaging Report ---
Clinical indication: Patient with headache around scar area from right frontal to right posterior for a while. Patient has vertigo. Patient has history of brain tumor removal. Exam: Axial CT scan of the brain performed without and with 80 cc of Omnipaque 350 IV contrast. Comparison: Head CT without and with IV contrast dated 04/01/2014. MRI of the brain performed without and with IV contrast dated 01/27/2011. Findings: Stable postop changes with right frontal craniectomy and prosthetic flap in place. There is no evidence of abnormal IV contrast enhancement or developing mass in the region. Remainder of the brain parenchyma is unremarkable with normal paez-white matter distinction. The brain parenchymal volume appears appropriate for patient's age. There is no brain herniation or midline shift. There is no hydrocephalus. Basal cisterns are unremarkable. Visualized false pass of Woody vascular structures show no major abnormality. The dural venous sinuses are unremarkable. Paranasal sinuses and temporal bone structures show no significant abnormality. Impression: 1: Stable CT scan of the brain with no evidence of interval acute intracranial process. There is no evidence of developing enhancing mass. L2: Stable postop changes to the right frontal region. Dictated by: Dictated on workstation # [id number]
== END ==
LOC: RAD 16:01
PROVIDERS: ATTEND Family Medicine
DX: R51 Headache (principal); M54.2 Cervicalgia; R42 Dizziness and giddiness; Z85.841 Personal history of malignant neoplasm of brain; Z98.890 Other specified postprocedural states
CPT/HCPCS: 70470

== ENCOUNTER → 2018-06-04 | Outpatient (CLI) | payer MEDICARE, OTHER ==
[~2018-06-04] MED LIST changes: -CATHETER FLUSH 10 ML SYR IV PRN; -IOHEXOL 350 MG/ML 100 ML (OMNIPAQUE 350) VIAL IV ONE; -NS 250 ML (IVPB) BAG IV ONE; -RECEIVED CONTRAST (Hold Metformin) IV SCH
--- NOTE | 2018-06-04 11:46 | Diagnostic Imaging Report ---
INDICATION: Left-sided knee pain, chronic TECHNIQUE: 2 views of the left knee CORRELATION STUDY: None FINDINGS: The joint spaces are maintained. The articular surfaces are smooth and preserved. There is no acute bony abnormality. Suprapatellar edema appears to be present. IMPRESSION: 1. Negative for acute bony abnormality of the knee. Dictated by: Dictated on workstation # [id number]
== END ==
LOC: RAD 10:45
PROVIDERS: ATTEND Pain Medicine Interventional Pain Medicine
DX: M25.562 Pain in left knee (principal)
CPT/HCPCS: 73560

== ENCOUNTER → 2018-06-05 | Outpatient (CLI) | payer MEDICARE, OTHER ==
--- NOTE | 2018-06-05 09:56 | Diagnostic Imaging Report ---
PROCEDURE: MRI left joint lower extremity without contrast. TECHNIQUE: Multiplanar, multisequence MR imaging of the left knee was performed without contrast. COMPARISON: Left knee radiographs from 06/04/2018. INDICATION: Lateral knee pain. FINDINGS: MENISCI Medial meniscus: Horizontal cleavage tear contacting the undersurface of the posterior horn of the medial meniscus. No associated para meniscal cyst or displaced fragments. Lateral meniscus: Normal. LIGAMENTS ACL: Intact. PCL: Intact. MCL: Intact. LCL: The lateral collateral ligamentous complex is intact. EXTENSOR MECHANISM The extensor mechanism is intact. CARTILAGE Medial compartment: Medial compartment articular cartilage is well preserved without focal high-grade chondromalacia. Lateral compartment: The lateral compartment articular cartilage is preserved without high-grade chondromalacia. Patellofemoral compartment: Focal full-thickness chondral fissuring with underlying subchondral cystic change at the patellar apex. BONE Subchondral insufficiency fracture in the periphery of the lateral femoral condyle with surrounding bone marrow edema. No discontinuity of the subchondral bone plate or subchondral collapse. SOFT TISSUE Small Boss's cyst. No knee joint effusion. IMPRESSION: 1. Acute/subacute subchondral insufficiency fracture in the lateral femoral condyle is nondisplaced. 2. Nondisplaced horizontal cleavage tear in the posterior horn of the medial meniscus. 3. Focal full-thickness chondral fissure at the patellar apex with underlying subchondral bone marrow edema/cyst. Remainder of the articular cartilage in the knee is preserved. Dictated by: Dictated on workstation # [id number]
== END ==
LOC: RAD 07:29
PROVIDERS: ATTEND Pain Medicine Interventional Pain Medicine
DX: M84.452A Pathological fracture, left femur, initial encounter for fracture (principal); M23.222 Derangement of posterior horn of medial meniscus due to old tear or injury, left knee
CPT/HCPCS: 73721

== ENCOUNTER 2018-07-04 09:08 | Outpatient (CLI) | payer MEDICARE, OTHER ==
[~2018-07-04] VITALS: Ht 167.6 cm; Wt 82.7 kg
[2018-07-04] MEDS ORDERED: AMIT10TA6 PO (09:25)
[2018-07-04] MEDS ORDERED: CYAN100088 PO (09:25)
[2018-07-04 09:30] VITALS: BP 111/76
== END 2018-07-04 09:49 | disposition home or self-care (01) ==
LOC: PREOP 09:08
PROVIDERS: ATTEND Orthopaedic Surgery
DX: Z01.818 Encounter for other preprocedural examination (principal)
CPT/HCPCS: 87081

== ENCOUNTER 2018-07-10 09:16 | Day surgery (SDC) | payer MEDICARE, OTHER ==
--- NOTE | 2018-06-28 08:21 | HISTORY AND PHYSICAL ---
DATE OF SERVICE: ADMISSION HISTORY AND PHYSICAL DATE OF ADMISSION: 07/10/2018. DATE OF SURGERY: Outpatient surgery on 07/10/2018 for left knee arthroscopy. HISTORY OF PRESENT ILLNESS: The patient is a 62-year-old gentleman with progressive worsening left knee pain. He reports pain in the medial aspect of his knee. He reports pain with activities. He reports pain with twisting and he reports swelling. He has undergone treatment with injections without relief. He underwent an MRI, which shows a posterior horn medial meniscal tear as well as an insufficiency fracture of the lateral femoral condyle. He reports his primary pain is medially; however. Due to functional impairment and failure to improve with conservative measures, the patient elected to proceed with surgical intervention. REVIEW OF SYSTEMS: No chest pain and no shortness of breath. No dysuria. PAST MEDICAL HISTORY: Headaches, seizures, heart disease and stroke. PRIMARY CARE PROVIDER: Dr. Christy. PAST SURGICAL HISTORY: Brain tumor, coronary stent placement, herniorrhaphy, right ankle, right knee, right total knee arthroplasty with revision, bilateral carpal tunnel releases, left shoulder arthroscopy left, ulnar nerve transposition, left clavicle and left forearm. FAMILY HISTORY: Significant for ischemic heart disease. MEDICATIONS: Pantoprazole, aspirin, oxycodone, sertraline, fenofibrate, Mobic, Voltaren, cyclobenzaprine, Depakote, Keppra, MiraLax, prednisone and Imitrex. ALLERGIES: TUNA and LAMOTRIGINE. SOCIAL HISTORY: The patient denies alcohol or tobacco use. RADIOGRAPHS: Reveal no significant degenerative changes. MRI reveals a horizontal cleavage tear of the posterior horn of the medial meniscus. PHYSICAL EXAMINATION: GENERAL: The patient is a well-developed and well-nourished, in no acute distress. HEENT: Normocephalic and atraumatic. Pupils are equal, round and reactive to light. Oropharynx is clear. NECK: Supple. No lymphadenopathy. LUNGS: Clear to auscultation bilaterally. HEART: Regular rate and rhythm. ABDOMEN: Soft, nontender and nondistended. EXTREMITIES: The left knee demonstrates moderate effusion. It is tender along the medial joint line. He has pain in the knee with Saloni. He is minimally tender over the lateral femoral condyle. There is no varus or valgus laxity. Negative anterior and posterior drawer. NEUROLOGIC: He ambulates with a normal heel-to-toe gait. IMPRESSION: Left knee medial meniscus tear, unresponsive to conservative measures. PLAN: Left knee arthroscopy with partial medial meniscectomy. The risks, benefits, options, ramifications and recovery were discussed at length with the patient, he understands and wishes to proceed. Job ID: [id number] DocumentID: [id number] Dictated Date: 06/28/2018 07:54:29 Screening Representative Date: 06/28/2018 08:20:15 Dictated By: ALFONSO ETIENNE MD
[~2018-07-10] VITALS: Ht 167.6 cm; Wt 78.1 kg
[~2018-07-10 09:16] MED LIST changes: +AMIT10TA6 PO; +CYAN100088 PO
[2018-07-10] MEDS ORDERED: LACTATED RINGERS 1,000 ML IV PRN (09:20)
[2018-07-10 09:30] VITALS: BP 145/90
[2018-07-10] MEDS ORDERED: ceFAZolin INJECTION 1,000 MG in NS (IVPB) 50 ML IV ONE (09:30)
[2018-07-10] MEDS ORDERED: fentaNYL INJECTION 100 MCG/2 ML AMP ONE (09:43)
[2018-07-10] MEDS ORDERED: MIDAZOLAM 2 MG/2 ML (VERSED) VIAL ONE (09:43)
[2018-07-10] MEDS ORDERED: morphine PF (DURAMORPH) 10 MG/10 ML AMP ONE (09:52)
[2018-07-10] MEDS ORDERED: BUPIVACAINE 0.25% 30 ML (SENSORCAINE) VIAL ONE (09:52)
--- NOTE | 2018-07-10 10:19 | Progress Note-Pre Operative ---
Pre-Operative Progress Note H&P Reviewed The H&P was reviewed, patient examined and no changes noted. Date Seen by Provider: Jul 10, 2018 Time Seen by Provider: 10:18 Date H&P Reviewed: Jul 10, 2018 Time H&P Reviewed: 10:18 Pre-Operative Diagnosis: left knee medial meniscus tear and chondromalacia ALFONSO ETIENNE MD Jul 10, 2018 10:19
--- NOTE | 2018-07-10 10:21 | Progress Note-Post Operative ---
Post-Operative Progess Note Surgeon (s)/Graphic Manager (s) Surgeon ALFONSO ETIENNE MD Graphic Manager: gisele smith Pre-Operative Diagnosis left knee medial meniscus tear and chondromalacia Post-Operative Diagnosis left knee medial meniscus tear and chondromalacia of medial femoral condyle, lateral tibial plateau and patella Procedure & Operative Findings Date of Procedure 07/10/18 Procedure Performed/Findings left knee arthroscopic partial medial meniscectomy and chondroplasty of the medial femoral condyle, lateral tibial plateau and patella Anesthesia Type GETA Estimated Blood Loss Estimated blood loss (mL): minimal Specimens/Packing Specimens Removed none Packing: none ALFONSO ETIENNE MD Jul 10, 2018 10:21
[2018-07-10] MEDS ORDERED: oxyCODONE/APAP 10/325MG (PERCOCET 10) TABLET PO PRN (10:30)
[2018-07-10] MEDS ORDERED: DEXAMETHASONE 10 MG/ML (DECADRON) 1 ML VIAL ONE (10:34)
[2018-07-10] MEDS ORDERED: proPOfol 200 MG/20 ML (DIPRIVAN) VIAL IV ONE (10:34)
[2018-07-10] MEDS ORDERED: LIDOCAINE PF 2% 5 ML (XYLOCAINE) VIAL ONE (10:34)
[2018-07-10] MEDS ORDERED: ONDANSETRON 4 MG/2 ML (SDV) Z0FRAN ONE (10:34)
[2018-07-10] MEDS ORDERED: SEVOFLURANE (ULTANE) 15 ML INHAL SOLN ONE (10:45)
[2018-07-10] MEDS ORDERED: ONDANSETRON 4 MG/2 ML (SDV) Z0FRAN IVP PRN (11:00)
[2018-07-10] MEDS ORDERED: morphine INJ 10 MG/ML 1ML (SYR OR VIAL) IVP ONE (11:00)
[2018-07-10] MEDS ORDERED: MEPERIDINE (DEMEROL) INJ 50 MG/ML IVP ONE (11:00)
[2018-07-10 12:10] VITALS: BP 117/74
[2018-07-10] MEDS ORDERED: OXYC-465 PO (12:38)
[2018-07-10 12:40] VITALS: BP 113/71
[2018-07-10 13:10] VITALS: BP 113/71
--- NOTE | 2018-07-10 13:28 | Physical Therapy Ortho Eval ---
PT Orthopedic Evaluation Type of Surgery Knee Scope Left knee Prior Level of Function Current Living Status: Significant Other Locomotion (Upon Admit): Independent Established Durable Medical Eq: Front Wheeled Walker, Straight Cane, Crutches Subjective Subjective Patient in bed pre tx, agrees to PT, has 5/10 pain in left knee. Entry Into Home: Level Entry Motor Control Motor Control: Motor Control WNL ROM left knee extension +3 degrees, flexion 70 degrees Strength NT Transfer Transfers (B, C, W/C) (FIM): 5 Gait Gait Assistive Device: Crutches Left Lower Extremity: Left Weight Bearing Status LLE: Weight Bearing/Tolerated Gait (FIM): 5 Distance: 100' Gait Level of Assist: 5 Summary/Comments SBA, steady, no LOB. Patient also went up and down 1 step using crutches with SBA and cues for step placement. Treatment Rendered Treatment: Therapeutic Exercises, Gait Train, Step Train Exercise Instruction: Quad Sets, Heel Slides, Ankle Pumps Assessment/Goals Goal Time Frame: 1 Visit Plan Treatment Plan: Discharge PT/Family Agrees to Plan: Yes Time Time In: 1300 Time Out: 1315 Total Billed Treatment Time: 15 Billed Treatment Time 1 visit EVL 15' JON BATES PT Jul 10, 2018 13:28
[2018-07-10 13:30] VITALS: BP 113/71
--- NOTE | 2018-07-10 14:06 | OPERATIVE REPORT ---
DATE OF SERVICE: 07/10/2018 PREOPERATIVE DIAGNOSES: 1. Left knee medial meniscus tear. 2. Left knee chondromalacia of the medial femoral condyle. POSTOPERATIVE DIAGNOSES: 1. Left knee medial meniscus tear. 2. Left knee chondromalacia of the medial femoral condyle. 3. Left knee chondromalacia of the lateral tibial plateau. 4. Left knee chondromalacia of the patella. PROCEDURES: 1. Left knee arthroscopic partial medial meniscectomy. 2. Left knee arthroscopic chondroplasty of the medial femoral condyle. 3. Left knee arthroscopic chondroplasty of the lateral tibial plateau. 4. Left knee arthroscopic chondroplasty of the patella. SURGEON: Alfonso Etienne MD. DIRECTOR SAFETY COUNCIL: JESSICA Lowe, who assisted throughout the procedure and closed the incisions. ANESTHESIA: General endotracheal. TOURNIQUET TIME: Not applicable. ESTIMATED BLOOD LOSS: Minimal. DRAINS: None. COMPLICATIONS: None. POSTOPERATIVE PLAN: Routine arthroscopy protocol. The patient was transported to the recovery room awake and in stable condition. STATEMENT OF MEDICAL NECESSITY: The patient is a 62-year-old gentleman with complaints of left medial knee pain, catching, locking and swelling. He was tender along his medial joint line. An MRI revealed a posterior horn medial meniscal tear as well as chondromalacia of his medial compartment. Due to functional impairment and failure to improve with extensive conservative measures, the patient elected to proceed with surgical intervention. Examination under anesthesia revealed range of motion of 0/0/130 with a negative Mariia, negative anterior and posterior drawer. No varus or valgus laxity and negative pivot shift. Arthroscopic findings of patella demonstrated grade II chondral flaps over the lateral facet in an 8 x 8 area. Trochlea demonstrated no gross chondral abnormalities. Medial and lateral gutters were clear. ACL and PCL were intact. Lateral compartment demonstrated grade II chondral flap in the central portion of the tibial plateau in an 8 x 8 area. The medial compartment demonstrated complex tear of the posterior horn of the medial meniscus involving approximately one-half of the posterior horn and the medial femoral condyle demonstrated grade II chondral flaps centrally in a 15 x 15 area. PROCEDURE IN DETAIL: After risks and benefits of the procedure were discussed and questions were answered and informed consent was signed and placed on the chart. The operative site was confirmed in the preoperative holding area initialed by the surgeon. The patient was transported to the operating room and after adequate levels of general endotracheal anesthetic were obtained, a timeout was called confirming the operative site. Examination under anesthesia was performed with the above findings noted. The left lower extremity was prepped and draped in the usual sterile fashion. The knee joint was injected with 60 mL of fluid and standard inferolateral portal was placed under direct visualization. An inferior medial portal was created and a diagnostic arthroscopy was carried out. The unstable chondral flaps on the patella were debrided with a shaver back to a stable edge. Scope was redirected into the lateral compartment. The unstable chondral flaps on the lateral tibial plateau were debrided with a shaver back to a stable edge. Scope was redirected into the medial compartment with unstable chondral flaps on the medial femoral condyle were debrided with a shaver back to a stable edge and the posterior horn of the medial meniscus was debrided with a biter and a shaver removing approximately one-half of the posterior horn. This was carefully probed with no further tearing or instability noted. The knee was copiously irrigated. Portal sites were closed with 4-0 nylon in simple interrupted fashion. The knee was injected with Duramorph. The portal sites were infiltrated with plain Marcaine. A soft dressing was applied. The patient was transported to the recovery room awake and in stable condition. Job ID: [id number] DocumentID: [id number] Dictated Date: 07/10/2018 11:05:20 Adolescent Psychiatrist Date: 07/10/2018 14:06:19 Dictated By: ALFONSO ETIENNE MD
== END 2018-07-10 13:30 | disposition home or self-care (01) ==
LOC: SDC 09:16
PROVIDERS: ATTEND Orthopaedic Surgery
DX: M23.222 Derangement of posterior horn of medial meniscus due to old tear or injury, left knee (principal); M22.42 Chondromalacia patellae, left knee; R56.9 Unspecified convulsions; I51.9 Heart disease, unspecified; Z86.73 Personal history of transient ischemic attack (TIA), and cerebral infarction without residual deficits; Z79.899 Other long term (current) drug therapy; Z82.49 Family history of ischemic heart disease and other diseases of the circulatory system

== ENCOUNTER → 2018-08-05 | Outpatient (CLI) | payer MEDICARE, OTHER | LOC: CARD 11:06 | PROVIDERS: ATTEND Internal Medicine Interventional Cardiology | DX: I25.10 Atherosclerotic heart disease of native coronary artery without angina pectoris (principal); I10 Essential (primary) hypertension; E78.5 Hyperlipidemia, unspecified | CPT/HCPCS: 93306 ==

== ENCOUNTER 2019-05-08 07:34 | Day surgery (SDC) | payer MEDICARE, OTHER ==
[~2019-05-08] VITALS: Ht 167.7 cm; Wt 82.0 kg
[2019-05-08] VITALS (10 sets, daily range): BP systolic 97–117; BP diastolic 62–76
[~2019-05-08 07:34] MED LIST changes: +OXYC-465 PO
[2019-05-08] MEDS ORDERED: NS IV 1000 ML 1,000 ML ONE (07:38)
[2019-05-08] MEDS ORDERED: LIDOCAINE 1% INJ 20 ML 20 ML VIAL ONE (07:38)
[2019-05-08] MEDS ORDERED: HEParin (CATH LAB) 2,000 ML IV ONE (07:38)
[2019-05-08] MEDS ORDERED: NS IV 1000 ML 1,000 ML IV SCH ×2 (07:41→09:58)
[2019-05-08] MEDS ORDERED: MULT-178 PO (07:55)
[2019-05-08] MEDS ORDERED: OXYC15TA79 PO (08:03)
[2019-05-08 08:04] LABS: HEMOGLOBIN 14.5 G/DL (13.3-17.7); MEAN PLATELET VOLUME 10.2 FL (7.4-10.4); WHITE BLOOD COUNT 6.5 10^3/uL (4.3-11.0)
[2019-05-08] MEDS ORDERED: DICL100G18 TD (08:11)
[2019-05-08] MEDS ORDERED: MIDAZOLAM 5 MG/5 ML (VERSED) VIAL ONE (08:12)
[2019-05-08] MEDS ORDERED: fentaNYL INJECTION 100 MCG/2 ML AMP ONE (08:13)
[2019-05-08] MEDS ORDERED: HEParin 1000 UNIT/ML (10ML VIAL) FOR BOLUS ONE (08:13)
--- NOTE | 2019-05-08 08:18 | NUR ---
SPOKE WITH THE PT (HE HAD A MED LIST) WELL CALLING [facility] TO COMPLETE THE MED REC. PT WAS ABLE TO TELL ME HOW/WHEN HE TAKES EACH MEDICATION, AND THEY MATCH THE DIRECTIONS FROM [facility]. THE FOLLOWING ARE FILL DATES: 12-11-2018 VOLTAREN GEL #6 TUBES/ USES PRN 02-16-2019 ATORVASTATIN #90/90DS 02-17-2019 LEVETIRACETAM #180/90DS 02-18-2019 TOPIRAMATE #180/90DS 03-22-2019 OXYCODONE #180-USES PRN (LAST FILL BEFORE THIS WAS 01-17-2019 #180) OTC MEDS: MTV VIT B12 VIT D ASPIRIN 81 MIRALAX
[2019-05-08 08:27] LABS: ALANINE AMINOTRANSFERASE 23 U/L (0-55); ALBUMIN 4.6 GM/DL (3.2-4.5); ALKALINE PHOSPHATASE 75 U/L (40-136); BILIRUBIN,TOTAL 0.8 MG/DL (0.1-1.0); BUN/CREATININE RATIO 14; CALCIUM 9.8 MG/DL (8.5-10.1); CARBON DIOXIDE 24 MMOL/L (21-32); CHLORIDE 110 MMOL/L (98-107); CHOLESTEROL 122 MG/DL (< 200); CREATININE SERUM 0.83 MG/DL (0.60-1.30); GFR ESTIMATED > 60; GLUCOSE 92 MG/DL (70-105); HDL CHOLESTEROL 41 MG/DL (40-60); POTASSIUM 3.9 MMOL/L (3.6-5.0); SODIUM 143 MMOL/L (135-145); TOTAL PROTEIN 6.8 GM/DL (6.4-8.2); TRIGLYCERIDES 110 MG/DL (<150); VLDL CHOLESTEROL 22 MG/DL (5-40)
[2019-05-08 08:30] LABS: PROTHROMBIN TIME PATIENT 13.6 SEC (12.2-14.7)
--- NOTE | 2019-05-08 09:53 | Cardiac Procedure Note-CS/ASA ---
Pre-Procedure Note Pre-Op Procedure Note H&P Reviewed The H&P was reviewed, patient examined and no changes noted. Date H&P Reviewed: May 08, 2019 Time H&P Reviewed: 08:30 Conscious Sedation Pre-Proced Time 08:30 ASA Score 3 For ASA 3 and 4: Consider anesthesia and medical clearance. Also, for patients with a history of failed moderate sedation consider anesthesia. Airway Lungs Heart ASA score ASA 1: a normal healthy patient ASA 2: a patient with a mild systemic disease (mid diabetes, controlled hypertension, obesity ASA 3: a patient with a severe systemic disease that limits activity (angina, COPD, prior Myocardial infarction) ASA 4: a patient with an incapacitating disease that is a constant threat to life (CHF, renal failure) ASA 5: a moribund patient not expected to survive 24 hrs. (ruptured aneurysm) ASA 6: a declared brain- patient whose organs are being harvested. For emergent operations, add the letter E after the classification Mallampati Classification Grade 1 Sedation Plan Analgesia, Amnesia, Plan communicated to team members, Discussed options with patient/fam, Discussed risks with patient/fam The patient is an appropriate candidate to undergo the planned procedure, sedation, and anesthesia. The patient immediately re-assessed prior to indication. Shelton ESTRADA MD May 08, 2019 9:53 am POS
--- NOTE | 2019-05-08 09:58 | Coronary Angiography Report ---
Coronary Angiography Report DATE OF PROCEDURE: 05/08/19 INDICATION: Worsening recurrent chest pain. Previous history of multivessel PCI. PREOPERATIVE DIAGNOSIS: Worsening recurrent chest pain. Previous history of multivessel PCI. POSTOPERATIVE DIAGNOSIS: Mild CAD, patent stents. HISTORY: This is a 63-year-old gentleman who's had previous history of multivessel PCI in the LAD, OM1, RCA. He presented to the office with worsening recurrent chest pain episodes requiring numerous nitroglycerin daily. Therefore, the patient was scheduled for coronary angiography. PROCEDURES PERFORMED: 1.Coronary angiography. 2.Left heart catheterization. COMPLICATIONS: None. SPECIMENS: None. ESTIMATED BLOOD LOSS: 10 mL ANESTHESIA: Conscious sedation ANTICOAGULATION: None. CONTRAST: 31 mL. FLUOROSCOPY: 2.8 minutes. FLOUROSCOPY DOSE: 446 mgy. PROCEDURE DETAILS: The patient is a 63 male and was brought to the public works laborer after informed consent was taken. All the risks and complications were explained in detail; this included the risk of bleeding, vascular damage, stroke, [place] and even . The patient was draped and prepped in the usual sterile fashion. Access was gained in the right femoral artery with a 5 Peruvian sheath. Coronary angiography and left heart catheterization was performed with a JR4 and JL4 catheter. FINDINGS: 1.Left main: Mild distal left main disease. Stenosis severity 10 percent. 2.LAD: Mild ostial LAD disease. Stenosis severity 10 percent. There is a stent in the proximal/midsegment of the LAD. There is mild in-stent restenosis in the proximal segment of the stent. No moderate to severe stenosis is noted. 3.Left circumflex artery: There is a patent stent in the first OM artery. No significant in-stent restenosis. 4.RCA: There is a patent stent in the distal RCA with mild in-stent restenosis. No moderate to severe stenosis. 5.Left heart catheterization: LV pressure 100/15 mmHg. LVEDP 14 mmHg. Aortic pressure 106/68 mmHg. Normal LV function with no wall motion abnormalities. No gradient across the aortic valve. CONCLUSIONS: Mild CAD with patent stents with mild in-stent restenosis. No moderate to severe disease noted. Mildly elevated LVEDP suggest diastolic dysfunction. Continue secondary prevention measures. Petros Villalta MD, FACP, FACC, [facility] Interventional Cardiology Shelton VILLALTA MD May 08, 2019 9:58 am POS
[2019-05-08] MEDS ORDERED: PATIENT MAY USE OWN MEDS, ALL PO SCH (10:00)
--- NOTE | 2019-05-08 10:00 | Discharge Inst-Post CATH ---
Discharge Inst-CATH/EP Problems Reviewed?: Yes Final Diagnosis Mild CAD, mild diastolic dysfunction. Post Cardiac Cath/EP D/C Inst Follow Up/Plan Dr. Villalta in 4 weeks. <b>CARDIAC CATH/EP PROCEDURE DISCHARGE INSTRUCTIONS</b> ACTIVITY * Go Home directly and rest. * Limit activity of the leg (or wrist if it was used) for 7 days including aerobics, swimming, jogging, bicycling, etc. * Restrict stair-climbing for 7 days if possible, if not, climb up with your non-cath leg, then bring together on the same step. * Avoid lifting, pushing, pulling or excessive movement of the affected extremity for 7 days. * Customary sexual activity may be resumed after 2 days-use caution not to use a position that strains or causes pain to the affected extremity. * No driving for 24 hours. * NO SMOKING. * Avoid straining for bowel movements for 7 days. * Gentle walking on level ground is allowed. * Returning to work will depend on the type of procedure and the results. Your doctor will discuss this with you. CALL YOUR DOCTOR FOR ANY OF THE FOLLOWING: *If bleeding from the puncture site occurs- Apply gentle pressure to site with clean cloth and call your doctor or EMS. * If a knot or lump forms under the skin, increases in size, or causes pain. * If bruising appears to be worsening or moving further down your leg instead of disappearing. * Temperature above 101 F. CARE OF YOUR GROIN INCISION; * Bruising or purple discoloration of the skin near the puncture site is common. * You may shower only, no bathtub bathing for 5 days. Be careful to avoid slip ping as your leg may feel stiff. * If a closure device was used on your femoral artery, please see the attached guide regarding care of the device and your leg. * Leave dressing on FOR 24 hours. CARE OF YOUR WRIST INCISION; * Bruising or purple discoloration of the skin near the puncture site is common. * You may shower. * DO NOT submerge wrist. * Leave dressing on FOR 24 hours. Shelton VILLALTA MD May 08, 2019 10:00 am POS
--- NOTE | 2019-05-08 10:02 | Cardiology Discharge Summary ---
Diagnosis/Chief Complaint Date of Admission 05/08/2019 Date of Discharge 05/08/2019 Admission Diagnosis Worsening recurrent chest pain, history of multivessel PCI Final/Discharge Diagnosis Mild CAD, mild diastolic dysfunction. Chief Complaint/HPI Chief Complaint/HPI This is a 63-year-old gentleman who's had previous history of multivessel PCI in the LAD, OM1, RCA. He presented to the office with worsening recurrent chest pain episodes requiring numerous nitroglycerin daily. Therefore, the patient was scheduled for coronary angiography. Discharge Summary Procedures Coronary angiography showed mild CAD with mild ISR in the stents. Patent stent in the LAD, OM1 and RCA. Mild diastolic dysfunction with LVEDP of 14. Discharge Physical Examination Normal cardiovascular examination. Hospital Course Was the Problem List Reviewed?: Yes Unremarkable. Pending Labs Laboratory Tests 05/08/19 07:58: White Blood Count 6.5, Red Blood Count 4.73, Hemoglobin 14.5, Hematocrit 43, Mean Corpuscular Volume 90, Mean Corpuscular Hemoglobin 31, Mean Corpuscular Hemoglobin Concent 34, Red Cell Distribution Width 14.0, Platelet Count 204, Mean Platelet Volume 10.2, Prothrombin Time 13.6, INR Comment 1.0, Activated Partial Thromboplast Time 31, Sodium Level 143, Potassium Level 3.9, Chloride Level 110, Carbon Dioxide Level 24, Anion Gap 9, Blood Urea Nitrogen 12, Creatinine 0.83, Estimat Glomerular Filtration Rate > 60, BUN/Creatinine Ratio 14, Glucose Level 92, Calcium Level 9.8, Corrected Calcium , Total Bilirubin 0.8, Aspartate Amino Transf (AST/SGOT) 22, Alanine Aminotransferase (ALT/SGPT) 23, Alkaline Phosphatase 75, Total Protein 6.8, Albumin 4.6, Triglycerides Level 110, Cholesterol Level 122, LDL Cholesterol Direct 68, VLDL Cholesterol 22, HDL Cholesterol 41 Discussion & Recommendations Discussion Discharge instructions will be discussed with the patient. Continue secondary prevention measures. Follow up appt.: Dr. Villalta in 4 weeks. Dicharge Diet: Cardiac Diet Activity as Tolerated: Yes Home Medications Reviewed patient Home Medication Reconciliation performed by pharmacy medication reconciliations photographic reproduction technician and/or nursing. Patients Allergies have been reviewed. Discharge Home Medications: Reviewed and agree with Discharge Medication list on patient's Discharge Instruction sheet Condition at discharge Stable. Instructions to patient/family Dr. Villalta in 4 weeks. Shelton VILLALTA MD May 08, 2019 10:02 am POS
--- NOTE | 2019-05-08 10:10 | NUR ---
PT ARRIVED TO CU12. RIGHT GROIN SOFT AND BENIGN, DISTAL PULSE STRONG AND PALPABLE. PER SUPERVISOR PERSONNEL CLERKS STAFF, NO INTERVENTION COMPLETED, STENTS IN PLACE ARE PATENT. PT TO D/C HOME AFTER BEDREST AND AMBULATION IS DONE.
--- NOTE | 2019-05-08 14:48 | NUR ---
PT DISCHARGED HOME VIA PV . ALL PERSONAL BELONGINGS SENT WITH PATIENT. RIGHT GROIN HAS REMAINED BENIGN. DISCHARGE INFORMATION GIVEN TO PATIENT. VERBALIZES UNDERSTANDING. F/U APPT WITH DR ESTRADA MADE AND GIVEN TO PATIENT.
== END 2019-05-08 14:48 | disposition home or self-care (01) ==
LOC: CATH 07:34 → ICU 10:06 → CATH 14:48
PROVIDERS: ATTEND Internal Medicine Interventional Cardiology
DX: I25.10 Atherosclerotic heart disease of native coronary artery without angina pectoris (principal); T82.855A Stenosis of coronary artery stent, initial encounter; I35.0 Nonrheumatic aortic (valve) stenosis; E78.5 Hyperlipidemia, unspecified; I10 Essential (primary) hypertension; E78.1 Pure hyperglyceridemia; Z86.73 Personal history of transient ischemic attack (TIA), and cerebral infarction without residual deficits; Z79.82 Long term (current) use of aspirin; E66.3 Overweight; R00.1 Bradycardia, unspecified; M79.604 Pain in right leg; Z87.891 Personal history of nicotine dependence; Z95.5 Presence of coronary angioplasty implant and graft; Z96.651 Presence of right artificial knee joint; F32.9 Major depressive disorder, single episode, unspecified; M48.061 Spinal stenosis, lumbar region without neurogenic claudication
CPT/HCPCS: 36415; 80053; 80061; 85027; 85610; 85730; 87081; 93005; 93458

== ENCOUNTER 2019-05-17 14:40 | Emergency (ER) | payer MEDICARE, OTHER ==
[~2019-05-17] VITALS: Ht 170 cm; Wt 84.0 kg
[~2019-05-17 14:40] MED LIST changes: +DICL100G18 TD; +MULT-178 PO
[2019-05-17 15:45] LABS: BASOPHILS % (AUTO) 0 % (0-10); EOSINOPHILS % (AUTO) 0 % (0-10); HEMATOCRIT 42 % (40-54); HEMOGLOBIN 14.7 G/DL (13.3-17.7); LYMPHOCYTES # (AUTO) 0.3 X 10^3 (1.0-4.0); LYMPHOCYTES % (AUTO) 5 % (12-44); MEAN CORPUSCULAR HEMOGLOBIN 31 PG (25-34); MEAN CORPUSCULAR HGB CONC 35 G/DL (32-36); MEAN CORPUSCULAR VOLUME 88 FL (80-99); MEAN PLATELET VOLUME 10.5 FL (7.4-10.4); MONOCYTES # (AUTO) 0.4 X 10^3 (0.0-1.0); MONOCYTES % (AUTO) 5 % (0-12); NEUTROPHILS % (AUTO) 90 % (42-75); PLATELET COUNT 169 10^3/uL (130-400); RED CELL DISTRIBUTION WIDTH 13.6 % (10.0-14.5); WHITE BLOOD COUNT 6.7 10^3/uL (4.3-11.0)
[2019-05-17 15:46] LABS: BILIRUBIN,URINE NEGATIVE (NEGATIVE); CLARITY,URINE CLEAR; COLOR,URINE YELLOW; GLUCOSE, URINE (UA) NEGATIVE (NEGATIVE); KETONES,URINE NEGATIVE (NEGATIVE); LEUKOCYTE ESTERASE ,URINE NEGATIVE (NEGATIVE); NITRITE,URINE NEGATIVE (NEGATIVE); PH,URINE 6.5 (5-9); PROTEIN,URINE NEGATIVE (NEGATIVE)
[2019-05-17 15:52] LABS: BACTERIA,URINE NEGATIVE /HPF
[2019-05-17 15:59] LABS: ALANINE AMINOTRANSFERASE 17 U/L (0-55); ALBUMIN 4.4 GM/DL (3.2-4.5); ALKALINE PHOSPHATASE 69 U/L (40-136); BILIRUBIN,TOTAL 1.1 MG/DL (0.1-1.0); BUN/CREATININE RATIO 14; CALCIUM 9.3 MG/DL (8.5-10.1); CARBON DIOXIDE 19 MMOL/L (21-32); CHLORIDE 109 MMOL/L (98-107); CREATININE SERUM 0.81 MG/DL (0.60-1.30); GFR ESTIMATED > 60; GLUCOSE 105 MG/DL (70-105); POTASSIUM 3.6 MMOL/L (3.6-5.0); SODIUM 136 MMOL/L (135-145); TOTAL PROTEIN 6.6 GM/DL (6.4-8.2)
[2019-05-17 16:16] LABS: BAND NEUTROPHILS 14 %; LYMPHOCYTES % (MANUAL) 2 %; MONOCYTES % (MANUAL) 2 %; NEUTROPHILS % (MANUAL) 82 %; RBC MORPH NORMAL
--- NOTE | 2019-05-17 16:27 | Diagnostic Imaging Report ---
PROCEDURE: CT head without contrast. TECHNIQUE: Multiple contiguous axial images were obtained through the brain without the use of intravenous contrast. Auto Exposure Controls were utilized during the CT exam to meet ALARA standards for radiation dose reduction. INDICATION: Right-sided headache. History of benign tumor removed several years ago. COMPARISON: 02/28/2018 FINDINGS: The ventricles and cortical sulci are age-appropriate. There is no midline shift or mass-effect. No acute intracranial hemorrhage is seen. There is no CT evidence of acute territorial ischemia. No focal masses or collections are present. Postsurgical changes of cranial plasty are seen in the anterior right frontal calvarium. The visualized paranasal sinuses are clear. IMPRESSION: 1. No hemorrhage or focal intra-axial mass. No CT evidence of large acute territorial ischemia. 2. Stable cranial plasty changes in the anterior right frontal bone. No evidence of recurrence. Dictated by: Dictated on workstation # [id number]
--- NOTE | 2019-05-17 16:38 | Diagnostic Imaging Report ---
INDICATION: Chest pain COMPARISON: 12/04/2013 FINDINGS: Frontal and lateral views the chest demonstrate clear lungs bilaterally. The heart size is normal. There is no pneumothorax. Osseous structures are normal. IMPRESSION: No acute findings. Normal chest. Dictated by: Dictated on workstation # [id number]
--- NOTE | 2019-05-17 16:41 | ED Headache ---
General Chief Complaint: Head/Cervical Problems Stated Complaint: HEADACHE, CHILLS, FEVER Nursing Triage Note: pt reports right-sided HAthat radiates down neck, chills, intermittent fevers, and n/v/d since . pt has frequent HAs d/t brain surgery but states "I've never had one like this before." Nursing Sepsis Screen: Possible Severe Sepsis Risk History of Present Illness Date Seen by Provider: May 17, 2019 Time Seen by Provider: 16:00 Initial Comments This is a [id number]-pmi male who comes to the ER accompanied by his reporting right occipital headache for 3 days that has not gone away, it radiates down the neck. He reports he has hx of a brain tumor removal and experiences frequent headaches, however they normally go away with pain medication. Also, the patient reports feeling sluggish, fever (unsure of how high), chills, malaise, nausea and vomiting. Denies chest pain or shortness of air. Timing/Duration: constant Severity/Quality: moderate, throbbing Location: occipital (Right side) Prior Headaches/Recent Trauma: frequent headaches (Frequent headaches after brain surgery ) Modifying Factors: worse with movement Associated Symptoms: fever/chills, nausea/vomiting, weakness Allergies and Home Medications Allergies Coded Allergies: lamotrigine (Verified Allergy, Intermediate, RASH, 07/10/18) Uncoded Allergies: TUNA (Allergy, Severe, THROAT SWELLS, 06/21/15) Home Medications Aspirin 81 Mg Tablet.dr, 81 MG PO DAILY, (Reported) Atorvastatin Calcium 40 Mg Tablet, 40 MG PO HS, (Reported) Cholecalciferol (Vitamin D3) 2,000 Unit Tablet, 2,000 UNIT PO DAILY, (Reported) Cyanocobalamin (Vitamin B-12) 1,000 Mcg Tablet, 1,000 MCG PO DAILY, (Reported) Diclofenac Sodium 100 Gm Gel..gram., 1 APPLIC TD QID PRN for JOINT PAIN/SWEL LING, (Reported) Levetiracetam 500 Mg Tablet, 500 MG PO BID, (Reported) Multivitamin 1 Each Tablet, 1 EACH PO DAILY, (Reported) Nitroglycerin 0.4 Mg Tab.subl, 0.4 MG SL UD PRN for CHEST PAIN, (Reported) Oxycodone HCl 15 Mg Tablet, 15 MG PO TID PRN for PAIN-SEVERE (8-10), (Reported) USES FOR MIGRAINE PAIN Polyethylene Glycol 3350 17 Gm Powd.pack, 17 GM PO DAILY, (Reported) Topiramate 100 Mg Tablet, 100 MG PO BID, (Reported) Patient Home Medication List Home Medication List Reviewed: Yes (Believes) Review of Systems Review of Systems Constitutional: chills, fever, malaise, weakness Eyes: Pain (Mild pain with eye movement ) Ears, Nose, Mouth, Throat: no symptoms reported Respiratory: cough; No dyspnea on exertion, No short of breath Cardiovascular: no symptoms reported Gastrointestinal: diarrhea, nausea, vomiting Genitourinary: no symptoms reported Musculoskeletal: no symptoms reported Skin: no symptoms reported Psychiatric/Neurological: No Symptoms Reported Past Uhrdvom-Lgcgtx-Lkqqgw Hx Patient Social History Alcohol Use: Denies Use Recreational Drug Use: No Type Used: Smokeless Tobacco 2nd Hand Smoke Exposure: No Recent Foreign Travel: No Contact w/Someone Who Travel: No Recent Infectious Disease Expo: No Recent Hopitalizations: No Immunizations Up To Date Tetanus Booster (TDap): More than 5yrs Date of Pneumonia Vaccine: Feb 21, 2017 Date of Influenza Vaccine: Apr 07, 2019 Seasonal Allergies Seasonal Allergies: No Past Medical History Surgeries: Yes (NERVE REPLACEMENT LEFT ELBOW,INGUINAL HERNIA,BRAIN TUMOR, FOOT, R TKR) Respiratory: No (8 DAYS IN [facility]OPITAL FOR PNEUMONIA 1995, HASNT HAD SINCE) Pneumonia Cardiac: Yes (CODED IN RECOVERY AFTER BRAIN TUMOR WAS REMOVED, STENTS X7OR 9) Neurological: Yes (TIA-2010 FOLLOWING NECK INJECTION FOR HEADACHE, last seizure 2015 ) Seizure Disorder, TIA Reproductive Disorders: No Sexually Transmitted Disease: No HIV/AIDS: No Genitourinary: No Gastrointestinal: Yes (TAKES PROTONIX PRECAUTION) Chronic Constipation Musculoskeletal: Yes Arthritis Endocrine: No HEENT: Yes (READING GLASSES) Loss of Vision: Bilateral Hearing Impairment: Denies, Bilateral Hearing Aide Cancer: Yes (BRAIN TUMOR BENIGN) What Type of Treatment Did You: Surgical Intervention Psychosocial: Yes Anxiety Integumentary: No Blood Disorders: No Adverse Reaction/Blood Tranf: No Family Medical History Alcoholism G8 BROTHER Cancer G8 SISTER (PANCREATIC) Family history: Arthritis 19 FATHER 19 MOTHER Family history: Cardiovascular disease 19 FATHER 19 MOTHER Family history: Coronary thrombosis Family history: Diabetes mellitus G8 SISTER Family history: Hypertension 19 FATHER 19 MOTHER Myocardial infarction 19 FATHER 19 MOTHER No Family History of: Abdominal aortic aneurysm Family history: Alzheimer's disease Family history: Asthma Family history: Breast disease Family history: Gastrointestinal disease Family history: Thyroid disorder Hereditary disease History of - respiratory disease Kidney disease Parkinson's disease Prostate cancer Psychotic disorder Seizure disorder Stroke Physical Exam Vital Signs Vital Signs - First Documented 05/17/19 15:00 Pulse 105 Resp 24 B/P (MAP) 107/84 (92) Pulse Ox 95 O2 Delivery Room Air Capillary Refill : Less Than 3 Seconds Height, Weight, BMI Height: 5'6.00" Weight: 172lbs. 4.0oz. 78.257508ag; 29.00 BMI Method: General Appearance: WD/WN, moderate distress HEENT: PERRL/EOMI Neck: full range of motion, supple, normal inspection Cardiovascular: regular rate, rhythm, no edema, no gallop, no JVD, no murmur Respiratory: chest non-tender, no respiratory distress, no accessory muscle use, rhonchi (Left lower lobe); No wheezing Gastrointestinal: normal bowel sounds, soft, tenderness (mild abdominal tenderness all quadrants upon palpation ) Back: No no vertebral tenderness Extremities: normal range of motion Psychiatric: alert, oriented x 3 Crainal Nerves: normal speech, PERRL Motor/Sensory: no motor deficit Progress/Results/Core Measures Results/Orders Lab Results Laboratory Tests Test 05/17/19 15:15 05/17/19 15:20 Range/Units White Blood Count 6.7 4.3-11.0 10^3/uL Red Blood Count 4.82 4.35-5.85 10^6/uL Hemoglobin 14.7 13.3-17.7 G/DL Hematocrit 42 40-54 % Mean Corpuscular Volume 88 80-99 FL Mean Corpuscular Hemoglobin 31 25-34 PG Mean Corpuscular Hemoglobin Concent 35 32-36 G/DL Red Cell Distribution Width 13.6 10.0-14.5 % Platelet Count 169 130-400 10^3/uL Mean Platelet Volume 10.5 H 7.4-10.4 FL Neutrophils (%) (Auto) 90 H 42-75 % Lymphocytes (%) (Auto) 5 L 12-44 % Monocytes (%) (Auto) 5 0-12 % Eosinophils (%) (Auto) 0 0-10 % Basophils (%) (Auto) 0 0-10 % Neutrophils # (Auto) 6.0 1.8-7.8 X 10^3 Lymphocytes # (Auto) 0.3 L 1.0-4.0 X 10^3 Monocytes # (Auto) 0.4 0.0-1.0 X 10^3 Eosinophils # (Auto) 0.0 0.0-0.3 10^3/uL Basophils # (Auto) 0.0 0.0-0.1 10^3/uL Neutrophils % (Manual) 82 % Lymphocytes % (Manual) 2 % Monocytes % (Manual) 2 % Band Neutrophils 14 % Blood Morphology Comment NORMAL Sodium Level 136 135-145 MMOL/L Potassium Level 3.6 3.6-5.0 MMOL/L Chloride Level 109 H 98-107 MMOL/L Carbon Dioxide Level 19 L 21-32 MMOL/L Anion Gap 8 5-14 MMOL/L Blood Urea Nitrogen 11 7-18 MG/DL Creatinine 0.81 0.60-1.30 MG/DL Estimat Glomerular Filtration Rate > 60 BUN/Creatinine Ratio 14 Glucose Level 105 70-105 MG/DL Calcium Level 9.3 8.5-10.1 MG/DL Corrected Calcium 9.0 8.5-10.1 MG/DL Total Bilirubin 1.1 H 0.1-1.0 MG/DL Aspartate Amino Transf (AST/SGOT) 19 5-34 U/L Alanine Aminotransferase (ALT/SGPT) 17 0-55 U/L Alkaline Phosphatase 69 40-136 U/L C-Reactive Protein High Sensitivity 1.94 H 0.00-0.50 MG/DL Total Protein 6.6 6.4-8.2 GM/DL Albumin 4.4 3.2-4.5 GM/DL Urine Color YELLOW Urine Clarity CLEAR Urine pH 6.5 5-9 Urine Specific Mccarley 1.010 L 1.016-1.022 Urine Protein NEGATIVE NEGATIVE Urine Glucose (UA) NEGATIVE NEGATIVE Urine Ketones NEGATIVE NEGATIVE Urine Nitrite NEGATIVE NEGATIVE Urine Bilirubin NEGATIVE NEGATIVE Urine Urobilinogen 0.2 < = 1.0 MG/DL Urine Leukocyte Esterase NEGATIVE NEGATIVE Urine RBC (Auto) NEGATIVE NEGATIVE Urine RBC NONE /HPF Urine WBC NONE /HPF Urine Crystals NONE /LPF Urine Bacteria NEGATIVE /HPF Urine Casts NONE /LPF Urine Mucus NEGATIVE /LPF Urine Culture Indicated NO My Orders Orders - PEGGY HARLEY OPEN HEARTH MELTER Cbc With Automated Diff (05/17/19 15:40) Comprehensive Metabolic Panel (05/17/19 15:40) Ua Culture If Indicated (05/17/19 15:40) Ed Iv/Invasive Line Start (05/17/19 15:40) Manual Differential (05/17/19 15:15) Ct Head Wo (05/17/19 15:54) Hs C Reactive Protein (05/17/19 15:54) Chest Pa/Lat (2 View) (05/17/19 16:04) Influenza A And B Antigens (05/17/19 16:30) Ketorolac Injection (Toradol Injection) (05/17/19 17:00) Diphenhydramine Injection (Benadryl Inje (05/17/19 17:00) Prochlorperazine Injection (Compazine In (05/17/19 17:00) Medications Given in ED Current Medications Medications Dose Ordered Sig/Tato Route Start Time Stop Time Status Last Admin Dose Admin Diphenhydramine HCl 25 mg ONCE ONCE IVP 05/17/19 17:00 05/17/19 17:01 DC 05/17/19 17:12 25 MG Ketorolac Tromethamine 15 mg ONCE ONCE IVP 05/17/19 17:00 05/17/19 17:01 DC 05/17/19 17:12 15 MG Prochlorperazine Edisylate 5 mg ONCE ONCE IV 05/17/19 17:00 05/17/19 17:01 DC 05/17/19 17:17 5 MG Vital Signs/I&O 05/17/19 05/17/19 15:00 18:14 Pulse 105 84 Resp 24 18 B/P (MAP) 107/84 (92) 107/75 (92) Pulse Ox 95 99 O2 Delivery Room Air Blood Pressure Mean: 92 POS Departure Communication (Admissions) I did have a conversation with him about his symptoms and labs. This most likely represents a viral syndrome causing exacerbation of his chronic headache, neck pain, nausea and diarrhea. Subjective fevers. Alternatively, meningitis would be within the differential as well. He would like to defer LP at this time, will follow up with PCP sunday and return to Er for any worsening. Impression Primary Impression: Headache Disposition: HOME, SELF-CARE Condition: Stable Departure-Patient Inst. Decision time for Depature: 18:04 Referrals: TOBIAS DEGROOT DO (PCP/Family) Primary Care Physician Patient Instructions: Headache, Adult (DC) Add. Discharge Instructions: 1. Return to ER for any concerns 2. Follow-up with your doctor next week 3. All discharge instructions reviewed with patient and/or family. Voiced understanding. PEGGY HARLEY APRN May 17, 2019 16:41 POS
[2019-05-17] MEDS ORDERED: diphenhydrAMINE 50 MG/ML INJ (BENADRYL) IVP ONE (17:00)
[2019-05-17] MEDS ORDERED: PROCHLORPERAZINE 10 MG/2ML INJ (COMPAZINE) IV ONE (17:00)
[2019-05-17] MEDS ORDERED: KETOROLAC 30 MG/ML VIAL IVP ONE (17:00)
[2019-05-17 18:14] VITALS: BP 107/75
== END 2019-05-17 18:14 | disposition home or self-care (01) ==
LOC: EDUNIT# 14:40 → ER 14:42
DX: R51 Headache (principal); G40.909 Epilepsy, unspecified, not intractable, without status epilepticus; F41.9 Anxiety disorder, unspecified; Z86.011 Personal history of benign neoplasm of the brain; Z86.73 Personal history of transient ischemic attack (TIA), and cerebral infarction without residual deficits; Z79.82 Long term (current) use of aspirin; Z88.8 Allergy status to other drugs, medicaments and biological substances; Z96.651 Presence of right artificial knee joint; Z82.49 Family history of ischemic heart disease and other diseases of the circulatory system; Z80.0 Family history of malignant neoplasm of digestive organs
CPT/HCPCS: 36415; 70450; 71046; 80053; 81000; 85007; 85027; 86141; 96374; 96375

== ENCOUNTER → 2019-06-12 | Outpatient (CLI) | payer MEDICARE, OTHER ==
--- NOTE | 2019-06-12 14:34 | Diagnostic Imaging Report ---
PROCEDURE: MRI right joint lower extremity without contrast. TECHNIQUE: Multiplanar, multisequence non contrast-enhanced MRI of the right lower extremity was accomplished. INDICATION: Right ankle pain. No known injury. Pain at the lateral aspect of the right ankle. COMPARISON: None. FINDINGS: No acute fracture or dislocation is seen in the right ankle. Alignment appears normal. There are uzlnjuqy-gj-ycidfj degenerative changes in the subtalar and talonavicular joints. There is a large os trigonum. Mild edema in the posterior talus is likely due to degenerative change. No joint effusion is seen. The anterior and posterior syndesmotic ligaments are intact. The anterior talofibular ligament appears thickened. The posterior talofibular ligament is intact. The calcaneofibular ligament is intact. The deep fibers of the deltoid ligament appear intact. The plantar fascia is not thickened. There is mild edema in the sinus tarsi with decreased fat signal. The Achilles tendon is intact. The peroneal tendon demonstrates split tearing at the retromalleolar and inframalleolar aspects. The flexor tendons appear intact. The extensor tendons are intact. No focal muscular atrophy is seen. The soft tissues about the right ankle are otherwise unremarkable. The tarsal tunnel appears normal. IMPRESSION: 1. Longitudinal split tear of the peroneus brevis tendon. 2. 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 3. Thickening of the anterior talofibular ligament, may be from remote injury. 4. Decreased fat signal in the sinus tarsi, can be associated with sinus tarsi syndrome. Dictated by: Dictated on workstation # [id number]
== END ==
LOC: RAD 12:42
PROVIDERS: ATTEND Orthopaedic Surgery
DX: M76.71 Peroneal tendinitis, right leg (principal); M25.571 Pain in right ankle and joints of right foot
CPT/HCPCS: 73721

== ENCOUNTER 2019-07-24 09:25 | Outpatient (CLI) | payer MEDICARE, OTHER ==
[~2019-07-24] VITALS: Ht 167.7 cm; Wt 81.8 kg
[~2019-07-24 09:25] MED LIST changes: -METO-387 PO; +MTP25TSR PO
== END 2019-07-24 11:54 | disposition home or self-care (01) ==
LOC: PREOP 09:25
PROVIDERS: ATTEND Orthopaedic Surgery
DX: Z01.818 Encounter for other preprocedural examination (principal)

== ENCOUNTER 2019-07-30 09:06 | Day surgery (SDC) | payer MEDICARE, OTHER ==
--- NOTE | 2019-07-16 18:20 | HISTORY AND PHYSICAL ---
DATE OF SERVICE: This will be for outpatient surgery on 07/30/2019 for right peroneus brevis tendon repair. HISTORY OF PRESENT ILLNESS: The patient is a 63-year-old gentleman with complaints of right lateral ankle pain and swelling. He reports activity limitations because of the ankle. He underwent an MRI, which reveals a tear of the peroneus brevis. Due to functional impairment and failure to improve with conservative measures, the patient elected to proceed with surgical intervention. REVIEW OF SYSTEMS: No chest pain, no shortness of breath, no dysuria. PAST MEDICAL HISTORY: Seizures, heart disease, stroke, headaches. PAST SURGICAL HISTORY: Brain tumor, coronary stent, herniorrhaphy, right knee arthroscopy, right total knee arthroplasty, bilateral carpal tunnel, left shoulder arthroscopy, left ulnar nerve transposition, left clavicle left forearm. FAMILY HISTORY: Significant for arthritis, ischemic heart disease. PRIMARY CARE PROVIDER: Dr. Christy. MEDICATIONS: Pantoprazole, aspirin, oxycodone, sertraline, fenofibrate, Mobic, Voltaren, cyclobenzaprine, Depakote, , MiraLax, prednisone, Dyazide, Imitrex, oxycodone, Topamax, nitroglycerin. ALLERGIES: TUNA and LAMOTRIGINE. SOCIAL HISTORY: The patient denies alcohol, tobacco use. PHYSICAL EXAMINATION: GENERAL: The patient is well developed, well-nourished, in no acute distress. HEENT: Normocephalic, atraumatic. Pupils are equal, round, reactive to light. Oropharynx is clear. NECK: Supple, no lymphadenopathy. LUNGS: Clear to auscultation bilaterally. HEART: Regular rate and rhythm. ABDOMEN: Soft, nontender, nondistended. EXTREMITIES: The right ankle demonstrates tenderness over peroneal tendons. He has pain with resisted hindfoot eversion and with passive inversion. He ambulates with an antalgic gait. IMPRESSION: Right peroneus brevis tendon tear. PLAN: Right peroneus brevis tendon repair. The risks, benefits, options, ramifications and recovery have been discussed at length with the patient. He understands and wishes to proceed. Job ID: [id number] DocumentID: [id number] Dictated Date: 07/16/2019 17:56:34 Blanking Machine Operator Date: 07/16/2019 18:19:43 Dictated By: ALFONSO ETIENNE MD
[2019-07-30] VITALS (11 sets, daily range): BP systolic 118–127; BP diastolic 73–84
[~2019-07-30] VITALS: Ht 167.7 cm; Wt 81.8 kg
--- NOTE | 2019-07-30 09:24 | Progress Note-Pre Operative ---
Pre-Operative Progress Note H&P Reviewed The H&P was reviewed, patient examined and no changes noted. Date Seen by Provider: Jul 30, 2019 Time Seen by Provider: :24 Date H&P Reviewed: Jul 30, 2019 Time H&P Reviewed: 09:24 Pre-Operative Diagnosis: right peroneus brevis tear ALFONSO ETIENNE MD Jul 30, 2019 09:24
--- NOTE | 2019-07-30 09:25 | Progress Note-Post Operative ---
Post-Operative Progess Note Surgeon (s)/Solvent Recoverer (s) Surgeon ALFONSO ETIENNE MD Solvent Recoverer: Perfecto Langford Pre-Operative Diagnosis right peroneus brevis tear Post-Operative Diagnosis right peroneus brevis tear Procedure & Operative Findings Date of Procedure 07/30/19 Procedure Performed/Findings right peroneus brevis repair Anesthesia Type GETA Estimated Blood Loss Estimated blood loss (mL): minimal Specimens/Packing Specimens Removed none Packing: none ALFONSO ETIENNE MD Jul 30, 2019 09:25
[2019-07-30] MEDS ORDERED: BUPIVACAINE 0.5% 30 ML (SENSORCAINE) VIAL ONE (10:01)
[2019-07-30] MEDS ORDERED: ceFAZolin INJECTION 1,000 MG ONE (10:14)
[2019-07-30] MEDS ORDERED: WATER (STERILE) FOR INJECTION 10 ML ONE (10:14)
[2019-07-30] MEDS: LACTATED RINGERS 1,000 ML IV PRN ×2 (10:24→11:34)
[2019-07-30] MEDS ORDERED: ceFAZolin INJECTION 1,000 MG in WATER (STERILE) FOR INJECTION 10 ML IV ONE (10:30)
[2019-07-30] MEDS ORDERED: MEPERIDINE (DEMEROL) INJ 50 MG/ML IVP ONE (10:45)
[2019-07-30] MEDS ORDERED: ONDANSETRON 4 MG/2 ML (SDV) Z0FRAN IVP PRN (10:45)
[2019-07-30] MEDS ORDERED: fentaNYL INJECTION 100 MCG/2 ML AMP IVP ONE (10:45)
[2019-07-30] MEDS ORDERED: morphine INJ 10 MG/ML 1ML (SYR OR VIAL) IVP ONE (10:45)
[2019-07-30] MEDS ORDERED: MIDAZOLAM 2 MG/2 ML (VERSED) VIAL ONE (10:50)
[2019-07-30] MEDS ORDERED: fentaNYL INJECTION 100 MCG/2 ML AMP ONE (10:50)
[2019-07-30] MEDS ORDERED: LIDOCAINE PF 2% 5 ML (XYLOCAINE) VIAL ONE (11:24)
[2019-07-30] MEDS ORDERED: ONDANSETRON 4 MG/2 ML (SDV) Z0FRAN ONE (11:24)
[2019-07-30] MEDS ORDERED: proPOfol 200 MG/20 ML (DIPRIVAN) VIAL IV ONE (11:24)
[2019-07-30] MEDS ORDERED: SEVOFLURANE (ULTANE) 15 ML INHAL SOLN ONE ×3 (11:24)
--- NOTE | 2019-07-30 14:12 | Physical Therapy Ortho Eval ---
PT Orthopedic Evaluation Type of Surgery right ankle peroneal tendon repair Prior Level of Function Current Living Status: Significant Other Locomotion (Upon Admit): Independent Subjective Subjective Patient in bed pre tx, agrees to PT, has no complaints of pain. Patient instructed on TTWB. and performed RLE exercises x10 (HS, QS) Entry Into Home: Ramp Motor Control Motor Control: Motor Control WNL Transfer Transfers (B, C, W/C) (FIM): 4 Gait Gait Assistive Device: FWW Right Lower Extremity: Right Weight Bearing Status RLE: Touch Toe Bearing Distance: 100' Gait Level of Assist: 4 Summary/Comments Patient ambulated 100' with a rolling walker with SBA. He also went up and down 1 step using a rolling walker with SBA and cues for foot placement. Treatment Rendered Treatment: Therapeutic Exercises, Gait Train, Step Train Exercise Instruction: Quad Sets, Heel Slides Assessment/Goals Goal Time Frame: 1 Visit Understands HEP: Yes Safe Ambulation: Yes Plan Treatment Plan: Discharge PT/Family Agrees to Plan: Yes Time Time In: 1324 Time Out: 1337 Total Billed Treatment Time: 13 Billed Treatment Time 1 visit JON SHEFFIELD PT Jul 30, 2019 14:12
--- NOTE | 2019-07-30 20:29 | OPERATIVE REPORT ---
DATE OF SERVICE: 07/30/2019 PREOPERATIVE DIAGNOSIS: Right peroneus brevis tendon tear. POSTOPERATIVE DIAGNOSIS: Right peroneus brevis tendon tear. PROCEDURE: Right peroneus brevis tendon repair. SURGEON: Ian Etienen M.D. BIN OPERATOR: Perfecto Langford, who assisted throughout the procedure and closed the incision. ANESTHESIA: General endotracheal by Perfecto Mas CRNA. TOURNIQUET TIME: 15 minutes at 300 mmHg. ESTIMATED BLOOD LOSS: Minimal. DRAINS: None. COMPLICATIONS: None. POSTOPERATIVE PLAN: Toe touch weightbearing for 2 to 4 weeks with conversion to boot in 2 weeks with protected ambulation for 6 weeks. The patient transferred to recovery room in awake and stable condition. STATEMENT OF MEDICAL NECESSITY: The patient is a 63-year-old gentleman with long-standing progressive right lateral ankle pain and swelling over his peroneal tendons, he has pain with resisted hindfoot eversion and with passive inversion. He had tried rest, activity modifications, and anti-inflammatories without relief. Due to functional impairment and failure to improve with conservative measures, the patient elected to proceed with surgical intervention. An MRI confirmed a peroneus brevis tear at the lateral malleolus. DESCRIPTION OF PROCEDURE: After risks and benefits of procedure were discussed and questions were answered, an informed consent was signed and placed on chart. The operative site was confirmed and prepped in the preoperative holding area initialed by the surgeon. The patient was transferred to the operating room. After adequate levels of general endotracheal anesthetic were obtained, a timeout was called, confirming the operative site. Left lower extremity was prepped and draped in the usual sterile fashion with the leg elevated, tourniquet was inflated to 300 mmHg. An incision was made just posterior to the lateral malleolus extending distally along the line of the peroneal tendons. The retinaculum was incised in line with the incision. The peroneus brevis was flattened and elongated and torn in the midline at the lateral malleolus extending approximately 3 cm distally. This was debrided sharply and then oversewn in a running fashion with 2-0 Vicryl and excellent repair was obtained. The wound was copiously irrigated. The retinaculum was repaired with 2-0 Vicryl in [id number] interrupted fashion. The ankle was taken through range of motion with no tethering of the tendons noted and full range of ankle motion noted. The tourniquet was deflated for a total time of 15 minutes. Pressure was used for hemostasis. Wound was copiously irrigated and the skin was closed with 4-0 nylon in vertical mattress interrupted fashion. Soft dressing and splint were applied. The patient was transferred to the recovery room awake and in stable condition. Job ID: [id number] DocumentID: [id number] Dictated Date: 07/30/2019 11:39:01 Steam Tank Operator Date: 07/30/2019 19:06:41 Dictated By: IAN ETIENNE MD
== END 2019-07-30 14:00 | disposition home or self-care (01) ==
LOC: SDC 09:06
PROVIDERS: ATTEND Orthopaedic Surgery
DX: S96.811A Strain of other specified muscles and tendons at ankle and foot level, right foot, initial encounter (principal); I25.10 Atherosclerotic heart disease of native coronary artery without angina pectoris; I51.9 Heart disease, unspecified; K21.9 Gastro-esophageal reflux disease without esophagitis; G62.9 Polyneuropathy, unspecified; Z79.891 Long term (current) use of opiate analgesic; Z88.8 Allergy status to other drugs, medicaments and biological substances; Z79.82 Long term (current) use of aspirin; Z79.899 Other long term (current) drug therapy; Z86.73 Personal history of transient ischemic attack (TIA), and cerebral infarction without residual deficits; Z82.61 Family history of arthritis
CPT/HCPCS: 87081

== ENCOUNTER → 2019-12-08 | Outpatient (CLI) | payer MEDICARE, OTHER ==
[~2019-12-08] MED LIST changes: +OXYC-525 PO; -OXYC15TA79 PO
== END ==
LOC: CARD 12:57
PROVIDERS: ATTEND Internal Medicine Interventional Cardiology
DX: I35.1 Nonrheumatic aortic (valve) insufficiency (principal); I25.10 Atherosclerotic heart disease of native coronary artery without angina pectoris; I10 Essential (primary) hypertension; E78.5 Hyperlipidemia, unspecified; R00.2 Palpitations
CPT/HCPCS: 93306

== ENCOUNTER 2020-01-01 16:04 | Emergency (ER) | payer MEDICARE, OTHER ==
[~2020-01-01] VITALS: Ht 167 cm; Wt 81.1 kg
[2020-01-01 16:10] VITALS: BP 142/83
--- NOTE | 2020-01-01 16:38 | ED Integumentary General ---
General Chief Complaint: Skin/Wound Problems Stated Complaint: KNOT NEAR RECTUM Nursing Triage Note: ARRIVED VIA AMB TO ROOM 08. STATES AN AREA AROUND HIS RECTUM BECAME SORE YESTERDAY AND TODAY HIS LOOKED AT IT AND TOLD HIM IT COULD BE A BLOOD CLOT.. History of Present Illness Date Seen by Provider: Jan 01, 2020 Time Seen by Provider: 16:15 Initial Comments 64-year-old male presents for pain in the rectum with possible "knot." Patient noted the symptoms yesterday. He denies any blood in his stools or when he wipes. He takes MiraLAX daily to avoid constipation. He had a colonoscopy at age 50 and no abnormalities were noted on that. No history of hemorrhoids. Timing/Duration: yesterday Severity: mild Possible Cause: no cause identified Associated Symptoms: denies symptoms Allergies and Home Medications Allergies Coded Allergies: lamotrigine (Verified Allergy, Intermediate, RASH, 07/10/18) Uncoded Allergies: TUNA (Allergy, Severe, THROAT SWELLS, 06/21/15) Home Medications Aspirin 81 Mg Tablet.dr, 81 MG PO DAILY, (Reported) Atorvastatin Calcium 40 Mg Tablet, 40 MG PO HS, (Reported) Cholecalciferol (Vitamin D3) 2,000 Unit Tablet, 2,000 UNIT PO DAILY, (Reported) Cyanocobalamin (Vitamin B-12) 1,000 Mcg Tablet, 1,000 MCG PO DAILY, (Reported) Diclofenac Sodium 100 Gm Gel..gram., 1 APPLIC TD QID PRN for JOINT PAIN/SWELLING, (Reported) Levetiracetam 500 Mg Tablet, 500 MG PO BID, (Reported) Multivitamin 1 Each Tablet, 1 EACH PO DAILY, (Reported) Nitroglycerin 0.4 Mg Tab.subl, 0.4 MG SL UD PRN for CHEST PAIN, (Reported) Oxycodone HCl 15 Mg Tablet, 15 MG PO TID PRN for PAIN-SEVERE (8-10), (Reported) USES FOR MIGRAINE PAIN Polyethylene Glycol 3350 17 Gm Powd.pack, 17 GM PO DAILY, (Reported) Topiramate 100 Mg Tablet, 100 MG PO BID, (Reported) Patient Home Medication List Home Medication List Reviewed: Yes Review of Systems Review of Systems Constitutional: no symptoms reported, see HPI Gastrointestinal: see HPI, other (hemorrhoid) All Other Systems Reviewed Negative Unless Noted: Yes Past Dfvrnjt-Dyinxs-Efgkiv Hx Past Med/Social Hx: Reviewed Nursing Past Med/Soc Hx Patient Social History Alcohol Use: Denies Use Recreational Drug Use: No Smoking Status: Never a Smoker Type Used: Smokeless Tobacco 2nd Hand Smoke Exposure: No Recent Foreign Travel: No Contact w/Someone Who Travel: No Recent Infectious Disease Expo: No Recent Hopitalizations: No Immunizations Up To Date Tetanus Booster (TDap): More than 5yrs Date of Pneumonia Vaccine: Feb 21, 2017 Date of Influenza Vaccine: Apr 07, 2019 Seasonal Allergies Seasonal Allergies: No Past Medical History Surgeries: Yes (NERVE REPLACEMENT LEFT ELBOW,INGUINAL HERNIA,BRAIN TUMOR, FOOT, R TKR) Respiratory: No (8 DAYS IN [facility] 1995, HASNT HAD SINCE) Pneumonia Currently Using CPAP: No Currently Using BIPAP: No Cardiac: Yes (CODED IN RECOVERY AFTER BRAIN TUMOR WAS REMOVED, STENTS X7OR 9) Neurological: Yes (TIA-2010 FOLLOWING NECK INJECTION FOR HEADACHE, last seizure 2015 ) Seizure Disorder, TIA Reproductive Disorders: No Sexually Transmitted Disease: No HIV/AIDS: No Genitourinary: No Gastrointestinal: Yes Gastroesophageal Reflux, Chronic Constipation Musculoskeletal: Yes (R ankle peroneal tendon tear) Arthritis Endocrine: No HEENT: Yes (READING GLASSES) Loss of Vision: Bilateral Hearing Impairment: Denies, Bilateral Hearing Aide Cancer: Yes (BRAIN TUMOR BENIGN) What Type of Treatment Did You: Surgical Intervention Psychosocial: Yes Anxiety Integumentary: No Blood Disorders: No Adverse Reaction/Blood Tranf: No Family Medical History Alcoholism G8 BROTHER Cancer G8 SISTER (PANCREATIC) Family history: Arthritis 19 FATHER 19 MOTHER Family history: Cardiovascular disease 19 FATHER 19 MOTHER Family history: Coronary thrombosis Family history: Diabetes mellitus G8 SISTER Family history: Hypertension 19 FATHER 19 MOTHER Myocardial infarction 19 FATHER 19 MOTHER No Family History of: Abdominal aortic aneurysm Family history: Alzheimer's disease Family history: Asthma Family history: Breast disease Family history: Gastrointestinal disease Family history: Thyroid disorder Hereditary disease History of - respiratory disease Kidney disease Parkinson's disease Prostate cancer Psychotic disorder Seizure disorder Stroke Physical Exam Vital Signs Vital Signs - First Documented 01/01/20 16:10 Temp 36.8 Pulse 73 Resp 16 B/P (MAP) 142/83 (102) Pulse Ox 94 Capillary Refill : Less Than 3 Seconds General Appearance: WD/WN, no apparent distress Cardiovascular: normal peripheral pulses, regular rate, rhythm Respiratory: chest non-tender, lungs clear, normal breath sounds Gastrointestinal: normal bowel sounds, non tender Neurologic/Psychiatric: no motor/sensory deficits, alert, normal mood/affect, oriented x 3 Skin: normal color, warm/dry Comments external hemorrhoid on left side of rectum, no active bleeding, tender to palpation. Progress/Results/Core Measures Results/Orders Vital Signs/I&O 01/01/20 16:10 Temp 36.8 Pulse 73 Resp 16 B/P (MAP) 142/83 (102) Pulse Ox 94 Blood Pressure Mean: 102 Departure Impression Primary Impression: External hemorrhoid Disposition: HOME, SELF-CARE Condition: Improved Departure-Patient Inst. Decision time for Depature: 16:30 Referrals: TOBIAS DEGROOT DO (PCP/Family) Primary Care Physician Patient Instructions: Hemorrhoids (DC) Add. Discharge Instructions: Keep area clean and dry. Apply warm, moist compresses to area. Apply Tucks pads and Preparation H. Follow-up with Dr. Degroot if symptoms are not improving or if she will need referral to a general surgeon. Return to the emergency department for new, urgent health care needs. All discharge instructions reviewed with patient and/or family. Voiced understanding. Copy Copies To 1: TOBIAS DEGROOT AMY ARNP Jan 01, 2020 16:38
== END 2020-01-01 16:42 | disposition home or self-care (01) ==
LOC: EDUNIT# 16:04 → ER 16:06
DX: K64.4 Residual hemorrhoidal skin tags (principal); G40.909 Epilepsy, unspecified, not intractable, without status epilepticus; K59.09 Other constipation; F41.9 Anxiety disorder, unspecified; Z86.73 Personal history of transient ischemic attack (TIA), and cerebral infarction without residual deficits; Z96.651 Presence of right artificial knee joint; Z95.5 Presence of coronary angioplasty implant and graft; Z79.82 Long term (current) use of aspirin; Z88.8 Allergy status to other drugs, medicaments and biological substances; Z82.49 Family history of ischemic heart disease and other diseases of the circulatory system; Z80.0 Family history of malignant neoplasm of digestive organs; Z86.011 Personal history of benign neoplasm of the brain
CPT/HCPCS: 99281

== ENCOUNTER → 2020-11-10 | Outpatient (CLI) | payer MEDICARE, OTHER ==
[~2020-11-10] MED LIST changes: -AMIT10TA6 PO; +AMT10T PO; -OXYC-465 PO; +OXYC-556 PO; +SERT-413 PO; -SERT50TA9 PO
== END ==
LOC: CARD 10:08
PROVIDERS: ATTEND Internal Medicine Cardiovascular Disease
DX: I10 Essential (primary) hypertension (principal); I08.0 Rheumatic disorders of both mitral and aortic valves; I25.10 Atherosclerotic heart disease of native coronary artery without angina pectoris
CPT/HCPCS: 93306

== ENCOUNTER → 2020-12-23 | Outpatient (CLI) | payer MEDICARE, OTHER ==
[~2020-12-23] MED LIST changes: +CATHETER FLUSH 10 ML SYR IV PRN
--- NOTE | 2020-12-23 09:17 | HISTORY AND PHYSICAL ---
DATE OF SERVICE: OUTPATIENT DATE OF SURGERY: 01/05/2021. PROCEDURE: Left shoulder arthroscopy and rotator cuff repair. HISTORY OF PRESENT ILLNESS: The patient is a 65-year-old right hand dominant gentleman with progressively worsening left shoulder pain. He has undergone treatment with injections, which provided temporary relief of his symptoms. He reports pain on the lateral aspect of the shoulder, which is worse with overhead activities. He underwent an MRI, which reveals a near full thickness supraspinatus tear. Due to functional impairment and failure to improve with conservative measures, the patient has elected to proceed with surgical intervention. REVIEW OF SYSTEMS: No chest pain, no shortness of breath, no dysuria. PAST MEDICAL HISTORY: Headaches, seizures, heart disease, cerebrovascular accident, hypercholesterolemia, anxiety, hearing loss. PRIMARY CARE PROVIDER: Dr. Christy. PAST SURGICAL HISTORY: Brain tumor excision, coronary stent placement, herniorrhaphy, right ankle, right knee arthroscopy, right total knee arthroplasty, bilateral carpal tunnels, left shoulder arthroscopy, left ulnar nerve transposition, left clavicle, left forearm, right peroneus brevis repair. SOCIAL HISTORY: The patient denies alcohol and tobacco use. FAMILY HISTORY: Significant for ischemic heart disease. MEDICATIONS: Advair, aspirin, atorvastatin, oxycodone, phenobarbital, multivitamin, MiraLax, nitroglycerin, Voltaren and topiramate. ALLERGIES: TUNA AND LAMOTRIGINE. PHYSICAL EXAMINATION: GENERAL: The patient is well-developed, well-nourished, in no acute distress. HEENT: Normocephalic, atraumatic. Pupils are equal, round, reactive to light. Oropharynx is clear. NECK: Supple, no lymphadenopathy. LUNGS: Clear to auscultation bilaterally. HEART: Regular rate and rhythm. ABDOMEN: Soft, nontender, nondistended. EXTREMITIES: Left shoulder demonstrates positive Neer's and positive Hawkin sign. He has weakness with abduction and external rotation. Mildly positive Spurling's maneuver to the left. Active forward elevation of 110 degrees, passive distal external rotation is 70 degrees, internal rotation is to his beltline. IMPRESSION: Left rotator cuff tear. PLAN: Left shoulder arthroscopy with open rotator cuff repair. The risks, benefits, options, ramifications and recovery were discussed at length with the patient. He understands and wishes to proceed. Job ID: [id number] DocumentID: [id number] Dictated Date: 12/23/2020 08:22:36 Clinical Lab Scientist Date: 12/23/2020 09:17:28 Dictated By: ALFONSO ETIENNE MD
[2020-12-23 12:12] VITALS: BP 115/64
--- NOTE | 2020-12-24 11:12 | Cardiology Stress Test Report ---
Stress Test Report Date of Procedure/Referring: Date of Procedure: Dec 23, 2020 PCP Summer Walls MD Admitting Physician Jaylin Christy DO Indications: HTN Baseline Heart Rate: 62 Baseline Blood Pressure: Blood Pressure Systolic: 115 Blood Pressure Diastolic: 64 Vital Signs Date Time Temp Pulse Resp B/P (MAP) Pulse Ox O2 Delivery O2 Flow Rate FiO2 12/23/20 12:12 62 115/64 (81) Baseline Vital Signs Vital Signs Date Time Temp Pulse Resp B/P (MAP) Pulse Ox O2 Delivery O2 Flow Rate FiO2 12/23/20 12:12 62 115/64 (81) Baseline EKG: Baseline EKG: NSR Summary: After explaining the procedure and details to the patient, he signed the consent and was brought to the stress nuclear laboratory. Patient exercised on standard Khoa protocol, EKG, heart rate and blood pressure were monitored continuously, resting and stress doses of radio tracer were injected, imaging was acquired and reviewed in the short axis, horizontal long axis and vertical long axis views Patient was able to exercise for a total of 6.45 minutes on Khoa protocol, METs 8.1 Maximum heart rate 131 Maximum blood pressure 163/73 Stress EKG, Minimal nondiagnostic changes Recovery EKG, Return to baseline TID: 1 SSS: 6 SDS: 5 EF: 64 Conclusion: 1. Fair exercise tolerance for a total of 6 minutes 45 seconds on standard Khoa protocol total of 8.1 METS achieving 84% of maximal expected heart rate 2. Frequent PVCs noted during exercise resolve during recovery 3. Minimal nondiagnostic EKG changes with exercise return to baseline during recovery 4. Diaphragmatic attenuation with mild decrease uptake involving the mid to apical inferior wall and extending to the apex with mild reversibility suggestive of mild ischemia 5. Normal left ventricular size, EF 65% SUMMER WALLS MD Dec 24, 2020 11:12
== END ==
LOC: CARD 12-22 08:00
PROVIDERS: ATTEND Internal Medicine Cardiovascular Disease
DX: I10 Essential (primary) hypertension (principal); I25.10 Atherosclerotic heart disease of native coronary artery without angina pectoris
CPT/HCPCS: 78452; 93017; A9502

== ENCOUNTER 2020-12-29 05:37 | Outpatient (CLI) | payer MEDICARE, OTHER ==
[~2020-12-29] VITALS: Ht 167.7 cm; Wt 81.8 kg
[~2020-12-29 05:37] MED LIST changes: -CATHETER FLUSH 10 ML SYR IV PRN
[2020-12-29] MEDS ORDERED: ASPI-999 PO (16:46)
[2020-12-29] MEDS ORDERED: CHOL200059 PO (16:46)
[2020-12-29] MEDS ORDERED: PHEN30TA37 PO (16:46)
== END 2020-12-29 16:55 | disposition home or self-care (01) ==
LOC: PREOP 05:37
PROVIDERS: ATTEND Orthopaedic Surgery
DX: Z01.818 Encounter for other preprocedural examination (principal)

== ENCOUNTER 2021-01-05 07:03 | Day surgery (SDC) | payer MEDICARE, OTHER ==
[~2021-01-05] VITALS: Ht 167.7 cm; Wt 81.8 kg
[2021-01-05] VITALS (12 sets, daily range): BP systolic 97–191; BP diastolic 78–96
[~2021-01-05 07:03] MED LIST changes: +ASPI-999 PO; +CHOL200059 PO; +PHEN30TA37 PO
[2021-01-05] MEDS ORDERED: morphine PF (DURAMORPH) 10 MG/10 ML AMP ONE (07:14)
[2021-01-05] MEDS ORDERED: BUPIVACAINE 0.25% 30 ML (SENSORCAINE) VIAL ONE (07:15)
[2021-01-05] MEDS ORDERED: ceFAZolin INJECTION 1,000 MG in WATER (STERILE) FOR INJECTION 10 ML IV ONE (07:15)
[2021-01-05] MEDS ORDERED: oxyCODONE/APAP 5/325MG (PERCOCET 5) TABLET PO PRN (07:30)
--- NOTE | 2021-01-05 07:33 | Progress Note-Pre Operative ---
Pre-Operative Progress Note H&P Reviewed The H&P was reviewed, patient examined and no changes noted. Date Seen by Provider: Jan 05, 2021 Time Seen by Provider: 07:20 Date H&P Reviewed: Jan 05, 2021 Time H&P Reviewed: 07:11 Pre-Operative Diagnosis: left rotator cuff tear ALFONSO ETIENNE MD Jan 05, 2021 07:33
--- NOTE | 2021-01-05 07:34 | Progress Note-Post Operative ---
Post-Operative Progess Note Surgeon (s)/Guard Manager (s) Surgeon ALFONSO ETIENNE MD Guard Manager: Perfecto Langford Pre-Operative Diagnosis left rotator cuff tear Post-Operative Diagnosis left rotator cuff and labral tear Procedure & Operative Findings Date of Procedure 01/05/21 Procedure Performed/Findings left shoulder arthroscopic labral debridement and open rotator cuff repair Anesthesia Type GETA Estimated Blood Loss Estimated blood loss (mL): minimal Specimens/Packing Specimens Removed none Packing: none ALFONSO ETIENNE MD Jan 05, 2021 07:34
[2021-01-05] MEDS: LACTATED RINGERS 1,000 ML IV PRN ×2 (07:35→08:30)
[2021-01-05] MEDS ORDERED: ceFAZolin INJECTION 1,000 MG ONE (08:03)
[2021-01-05] MEDS ORDERED: WATER (STERILE) FOR INJECTION 0 ML ONE (08:06)
[2021-01-05] MEDS ORDERED: morphine INJ 10 MG/ML 1ML (SYR OR VIAL) ONE (09:38)
[2021-01-05] MEDS ORDERED: HYDROmorphone 2 MG/ML VIAL (DILAUDID) IV ONE (09:45)
[2021-01-05] MEDS ORDERED: morphine INJ 10 MG/ML 1ML (SYR OR VIAL) IVP ONE (09:45)
[2021-01-05] MEDS ORDERED: fentaNYL INJ 100 MCG/2 ML AMP IVP ONE (09:45)
[2021-01-05] MEDS ORDERED: ONDANSETRON 4 MG/2 ML (SDV) Z0FRAN IVP PRN (09:45)
--- NOTE | 2021-01-05 13:56 | OPERATIVE REPORT ---
DATE OF SERVICE: 01/05/2021 PREOPERATIVE DIAGNOSIS: Left rotator cuff tear. POSTOPERATIVE DIAGNOSES: 1. Left rotator cuff tear. 2. Left shoulder labral tear. PROCEDURES: 1. Left shoulder open rotator cuff repair. 2. Left shoulder arthroscopic labral debridement. SURGEON: Ian Etienne MD HEALTH PROMOTION SPECIALIST: Perfecto Langford, who assisted throughout the procedure and closed the incisions. ANESTHESIA: General endotracheal by Cami Tobar CRNA. ESTIMATED BLOOD LOSS: Minimal. DRAINS: None. COMPLICATIONS: None. POSTOPERATIVE PLAN: Sling wear and passive range of motion for 4 weeks. The patient was transferred to the recovery room awake and in stable condition. STATEMENT OF MEDICAL NECESSITY: The patient is a 65-year-old gentleman with complaints of progressively worsening left shoulder pain. He has undergone treatment with injections, home exercises and activity modifications without relief. An MRI was ultimately obtained, which revealed evidence of a supraspinatus tear. Due to functional impairment and failure to improve with conservative measures, the patient elected to proceed with surgical intervention. DESCRIPTION OF PROCEDURE: After risks and benefits of procedure were discussed and questions were answered, informed consent was signed and placed on chart, the operative site was confirmed in the preoperative holding area initialed by the surgeon. The patient was then transferred to the operating room. After adequate levels of general endotracheal anesthetic were obtained, a timeout was called, confirming the operative site. Examination under anesthesia was performed, which revealed forward elevation of 170 degrees, external rotation of 85 degrees and internal rotation of 75 degrees. The left upper extremity was then prepped and draped in the usual sterile fashion. Shoulder joint was injected with 20 mL of fluid and standard posterior portal was placed under direct visualization. Anterior portal was created in interval between biceps, subscapularis and glenoid. Diagnostic arthroscopy was carried out, which revealed a 1 x 1 cm full thickness supraspinatus tear. The remainder of the rotator cuff was intact. The biceps anchor was absent. There was, however posterior labral flap from the 1 to 2 o'clock positions. There is mild chondral softening in the superior aspect of the glenoid, but no unstable chondral flaps on the humeral head. The unstable labral tear posteriorly was debrided with a shaver. Scope and instruments were then removed. The port sites were closed with 4-0 nylon in simple interrupted fashion. Lateral incision was then made. The deltoid was split in line with its fibers. A bursectomy was performed. The rotator cuff tear was mobilized. A single corkscrew anchor was placed just off the articular surface. Modified Rick-Tristan repair was performed with excellent repair obtained. No undue tension was noted at the side. The repair was stable to shoulder range of motion. The wound was copiously irrigated. Deltoid was repaired in [id number] fashion using #2 FiberWire in [id number] interrupted fashion. The wound was further irrigated. A 3-0 Vicryl was used to reapproximate subcutaneous tissue. Skin was closed with 4-0 nylon running alternating horizontal mattress fashion. Shoulder joint was injected with Duramorph. Port sites were infiltrated with plain Marcaine as was the incision. A soft dressing and sling were applied. The patient was transferred to the recovery room awake and in stable condition. Job ID: [id number] DocumentID: [id number] Dictated Date: 01/05/2021 09:16:21 Cast Iron Dipper Date: 01/05/2021 13:55:19 Dictated By: IAN ETIENNE MD
--- NOTE | 2021-01-05 14:52 | Anesthesia-General Post-Op ---
General Patient Condition Mental Status/LOC: Same as Preop Cardiovascular: Satisfactory Nausea/Vomiting: Absent Respiratory: Satisfactory Pain: Controlled Complications: Absent Post Op Complications Complications None Follow Up Care/Instructions Patient Instructions None needed. Anesthesia/Patient Condition Patient Condition Patient is doing well, no complaints, stable vital signs, no apparent adverse anesthesia problems. No complications reported per nursing. SUBHA BENJAMIN CRNA Jan 05, 2021 14:52
== END 2021-01-05 11:55 | disposition home or self-care (01) ==
LOC: SDC 07:03
PROVIDERS: ATTEND Orthopaedic Surgery
DX: M75.102 Unspecified rotator cuff tear or rupture of left shoulder, not specified as traumatic (principal); S43.402A Unspecified sprain of left shoulder joint, initial encounter; I25.10 Atherosclerotic heart disease of native coronary artery without angina pectoris; E78.5 Hyperlipidemia, unspecified; K21.9 Gastro-esophageal reflux disease without esophagitis; Z79.82 Long term (current) use of aspirin; Z79.899 Other long term (current) drug therapy; Z83.3 Family history of diabetes mellitus; Z82.49 Family history of ischemic heart disease and other diseases of the circulatory system; Z87.891 Personal history of nicotine dependence; I10 Essential (primary) hypertension; I35.1 Nonrheumatic aortic (valve) insufficiency; I63.9 Cerebral infarction, unspecified; E78.2 Mixed hyperlipidemia
CPT/HCPCS: 29822; 29827; 87081; C1713

== ENCOUNTER 2021-01-19 09:00 | Day surgery (SDC) | payer MEDICARE, OTHER ==
[2021-01-19] VITALS (10 sets, daily range): BP systolic 101–144; BP diastolic 62–78
[~2021-01-19] VITALS: Ht 167.6 cm; Wt 81.4 kg
[2021-01-19 07:22] LABS: HEMATOCRIT 41 % (40-54); HEMOGLOBIN 13.7 g/dL (13.3-17.7); MEAN CORPUSCULAR HEMOGLOBIN 32 pg (25-34); MEAN CORPUSCULAR HGB CONC 34 g/dL (32-36); MEAN CORPUSCULAR VOLUME 93 fL (80-99); MEAN PLATELET VOLUME 9.9 fL (9.0-12.2); PLATELET COUNT 236 10^3/uL (130-400); WHITE BLOOD COUNT 6.1 10^3/uL (4.3-11.0)
[2021-01-19 07:24] LABS: BILIRUBIN,URINE NEGATIVE (NEGATIVE); CLARITY,URINE CLEAR; COLOR,URINE YELLOW; GLUCOSE, URINE (UA) NEGATIVE (NEGATIVE); KETONES,URINE NEGATIVE (NEGATIVE); LEUKOCYTE ESTERASE ,URINE NEGATIVE (NEGATIVE); NITRITE,URINE NEGATIVE (NEGATIVE); PH,URINE 5.5 (5-9); PROTEIN,URINE NEGATIVE (NEGATIVE)
--- NOTE | 2021-01-19 07:28 | Diagnostic Imaging Report ---
INDICATION: Preoperative exam, no complaints FINDINGS: Portable upright view of the chest demonstrates lungs to be clear. Heart, mediastinum and pulmonary vascularity and visualized bony thorax normal. IMPRESSION: Negative chest. Dictated by: Dictated on workstation # [id number]
[2021-01-19 07:36] LABS: BACTERIA,URINE NEGATIVE /HPF; CALCIUM OXALATE CRYSTALS,UR MODERATE /LPF
[2021-01-19 07:41] LABS: INR 1.1 (0.8-1.4); PROTHROMBIN TIME PATIENT 14.3 SEC (12.2-14.7)
[2021-01-19 07:44] LABS: ALBUMIN 4.1 GM/DL (3.2-4.5); BILIRUBIN,TOTAL 0.5 MG/DL (0.1-1.0); CALCIUM 9.2 MG/DL (8.5-10.1); CREATININE SERUM 0.75 MG/DL (0.60-1.30); POTASSIUM 3.7 MMOL/L (3.6-5.0); TOTAL PROTEIN 6.7 GM/DL (6.4-8.2)
--- NOTE | 2021-01-19 08:50 | Conscious Sedation/ASA ---
Conscious Sedation Pre-Proced Time 08:49 ASA Score 3 For ASA 3 and 4: Consider anesthesia and medical clearance. Also, for patients with a history of failed moderate sedation consider anesthesia. Airway Lungs Heart ASA score ASA 1: a normal healthy patient ASA 2: a patient with a mild systemic disease (mid diabetes, controlled hypertension, obesity x ASA 3: a patient with a severe systemic disease that limits activity (angina, COPD, prior Myocardial infarction) ASA 4: a patient with an incapacitating disease that is a constant threat to life (CHF, renal failure) ASA 5: a moribund patient not expected to survive 24 hrs. (ruptured aneurysm) ASA 6: a declared brain- patient whose organs are being harvested. For emergent operations, add the letter E after the classification Mallampati Classification Grade 3 Sedation Plan Analgesia, Amnesia, Plan communicated to team members, Discussed options with patient/fam, Discussed risks with patient/fam The patient is an appropriate candidate to undergo the planned procedure, sedation, and anesthesia. The patient immediately re-assessed prior to indication. SUMMER LARA MD Jan 19, 2021 08:50
[~2021-01-19 09:00] MED LIST changes: +DICL100G27 TP; +HEParin (CATH LAB) 2,000 ML IV ONE; +LIDOCAINE 1% INJ 20 ML 20 ML VIAL ONE; +NS IV 1000 ML 1,000 ML IV SCH; +NS IV 1000 ML 1,000 ML ONE; +SUMA50TA2 PO
[2021-01-19] MEDS ORDERED: NS IV 1000 ML 1,000 ML IV SCH (09:30)
[2021-01-19] MEDS ORDERED: PATIENT MAY USE OWN MEDS, ALL PO SCH (09:30)
--- NOTE | 2021-01-19 09:31 | Discharge Inst-Post CATH ---
Discharge Inst-CATH/EP Problems Reviewed?: Yes Post Cardiac Cath/EP D/C Inst Follow Up/Plan Appointment with Dr. Walls's office in 4 weeks <b>CARDIAC CATH/EP PROCEDURE DISCHARGE INSTRUCTIONS</b> ACTIVITY * Go Home directly and rest. * Limit activity of the leg (or wrist if it was used) for 7 days including aerobics, swimming, jogging, bicycling, etc. * Restrict stair-climbing for 7 days if possible, if not, climb up with your non-cath leg, then bring together on the same step. * Avoid lifting, pushing, pulling or excessive movement of the affected extremity for 7 days. * Customary sexual activity may be resumed after 2 days-use caution not to use a position that strains or causes pain to the affected extremity. * No driving for 24 hours. * NO SMOKING. * Avoid straining for bowel movements for 7 days. * Gentle walking on level ground is allowed. * Returning to work will depend on the type of procedure and the results. Your doctor will discuss this with you. CALL YOUR DOCTOR FOR ANY OF THE FOLLOWING: *If bleeding from the puncture site occurs- Apply gentle pressure to site with clean cloth and call your doctor or EMS. * If a knot or lump forms under the skin, increases in size, or causes pain. * If bruising appears to be worsening or moving further down your leg instead of disappearing. * Temperature above 101 F. CARE OF YOUR GROIN INCISION; * Bruising or purple discoloration of the skin near the puncture site is common. * You may shower only, no bathtub bathing for 5 days. Be careful to avoid slipping as your leg may feel stiff. * If a closure device was used on your femoral artery, please see the attached guide regarding care of the device and your leg. * Leave dressing on FOR 24 hours. CARE OF YOUR WRIST INCISION; * Bruising or purple discoloration of the skin near the puncture site is common. * You may shower. * DO NOT submerge wrist. * Leave dressing on FOR 24 hours. SUMMER WALLS MD Jan 19, 2021 09:31
--- NOTE | 2021-01-19 09:34 | Cardiac Cath Report ---
Cardiac Cath Report Physician (s)/Professional Healthcare Representative (s) Physician SUMMER LARA MD Pre-Procedure Diagnosis Pre-Procedure Diagnosis: Coronary artery disease Post-Procedure Note Procedure Start Date: Jan 19, 2021 Name of Procedure: Left heart catheterization Findings/Procedure Note PROCEDURE NOTE: 65-year-old gentleman with history of coronary artery disease multiple intervention in the past, had an abnormal stress test, scheduled for cardiac catheterization possible PTCA. After explaining the procedure to the patient, all pros and cons were explained, all questions were answered. The patient signed the consent and then he was placed on the cardiac catheterization laboratory. Groin was prepped SL fashion local anesthesia was used. Sheath placed in the right femoral artery. Tyler right and left catheter were used to access the coronary system. Pigtail was used to access the left ventricular cavity. Left ventriculogram was not done, pressure was measured At the end of the procedure the sheath was removed. Closure device was deployed FINDINGS: Hemodynamics LV 102/11, end-diastolic pressure of 11 Aorta 103/55 mean of 75 ANATOMY: Left Main has mild disease nonobstructive disease Left Anterior Descending has mild disease nonobstructive disease Left Circumflex has mild disease nonobstructive disease Right Coronary Artery has patent stent with mild disease nonobstructive disease LV Gram was not done, pressure was measured CONCLUSION: 1. Patent stent with mild disease nonobstructive disease in the coronary system 2. Normal left ventricular end-diastolic pressure DISCUSSION AND RECOMMENDATION: Medical therapy is recommended no intervention is warranted, abnormal stress test is probably due to small vessel disease Anesthesia Type: Conscious Sedation Estimated blood loss (mL): 10 ml Contrast Amount: 37 ml Total Radiation Dose: 223 mGy Post-Procedure Diagnosis Post-operative diagnosis: Chest pain Coronary artery disease Hypertension Hyperlipidemia SUMMER LARA MD Jan 19, 2021 09:34
== END 2021-01-19 14:10 ==
LOC: CATH 09:00 → SDC 09:45 → CATH 14:10
PROVIDERS: ATTEND Internal Medicine Cardiovascular Disease
DX: R07.9 Chest pain, unspecified (principal); I25.10 Atherosclerotic heart disease of native coronary artery without angina pectoris; I08.0 Rheumatic disorders of both mitral and aortic valves; I10 Essential (primary) hypertension; E78.2 Mixed hyperlipidemia; I49.3 Ventricular premature depolarization; I65.29 Occlusion and stenosis of unspecified carotid artery; R00.2 Palpitations; Z79.899 Other long term (current) drug therapy; Z79.82 Long term (current) use of aspirin; Z86.73 Personal history of transient ischemic attack (TIA), and cerebral infarction without residual deficits
CPT/HCPCS: 71045; 80053; 80061; 81000; 85027; 85610; 85730; 87081; 93458; C1760; C1894; 36415

== ENCOUNTER → 2021-08-19 | Outpatient (CLI) | payer MEDICARE, OTHER ==
[~2021-08-19] MED LIST changes: -HEParin (CATH LAB) 2,000 ML IV ONE; -LIDOCAINE 1% INJ 20 ML 20 ML VIAL ONE; -LISI2.5T PO; +LISI2.5T13 PO; -NS IV 1000 ML 1,000 ML IV SCH; -NS IV 1000 ML 1,000 ML ONE; -PHEN30TA37 PO; +PHEN30TA45 PO
== END ==
LOC: CARD 13:30
PROVIDERS: ATTEND Internal Medicine Cardiovascular Disease
DX: I35.1 Nonrheumatic aortic (valve) insufficiency (principal); I25.10 Atherosclerotic heart disease of native coronary artery without angina pectoris; I10 Essential (primary) hypertension
CPT/HCPCS: 93306

== ENCOUNTER 2021-09-01 05:36 | Outpatient (CLI) | payer MEDICARE, OTHER ==
[~2021-09-01] VITALS: Ht 167.6 cm; Wt 79.4 kg
[2021-09-02] MEDS ORDERED: PANT40TA52 PO (08:37)
== END 2021-09-02 09:05 | disposition home or self-care (01) ==
LOC: PREOP 05:36
PROVIDERS: ATTEND Surgery
DX: Z01.818 Encounter for other preprocedural examination (principal)

== ENCOUNTER 2021-09-07 10:25 | Day surgery (SDC) | payer MEDICARE, OTHER ==
[~2021-09-07] VITALS: Ht 167.6 cm; Wt 79.4 kg
[~2021-09-07 10:25] MED LIST changes: +PANT40TA52 PO
[2021-09-07] MEDS ORDERED: LACTATED RINGERS 1,000 ML IV STA (10:31)
[2021-09-07 10:35] VITALS: BP 127/75
[2021-09-07] MEDS ORDERED: HURRICAINE EXT TUBE (BENZOCAINE) XX PRN (10:45)
--- NOTE | 2021-09-07 12:25 | Progress Note-Pre Operative ---
Pre-Operative Progress Note H&P Reviewed The H&P was reviewed, patient examined and no changes noted. Date Seen by Provider: Sep 07, 2021 Time Seen by Provider: 12:00 Date H&P Reviewed: Sep 07, 2021 Time H&P Reviewed: 12:00 Pre-Operative Diagnosis: screening KISHAN Castaneda MD Sep 07, 2021 12:25
--- NOTE | 2021-09-07 12:26 | Discharge Inst-Surgical ---
D/C Lap Instructions-RON Follow Up Activity as tolerated High Fiber Diet 25g or more per day Avoid Alcohol, Caffeine, Spicy [place] and Acid foods. Drink 64 fluid oz or more of fluids per day. Symptoms to Report: Fever over 101 degree F, Nausea/Vomiting If any problems/questions: Contact your physician or go to Emergency Room KISHAN VELASQUEZ MD Sep 07, 2021 12:26
[2021-09-07] MEDS ORDERED: ONDANSETRON 4 MG/2 ML (SDV) Z0FRAN IVP PRN (12:30)
[2021-09-07] MEDS ORDERED: ONDANSETRON 4 MG (ZOFRAN) ORAL DISSOLVE TAB PO PRN (12:30)
[2021-09-07] MEDS ORDERED: PROPOFOL INJECTION 50 ML IV ONE (12:50)
[2021-09-07] MEDS ORDERED: LIDOCAINE JELLY 2% 6 ML SYRINGE ONE (12:57)
[2021-09-07] MEDS ORDERED: LIDOCAINE JELLY 2% 6 ML SYRINGE TOP ONE (13:15)
[2021-09-07 13:20] VITALS: BP 107/65
--- NOTE | 2021-09-07 13:21 | Anesthesia-General Post-Op ---
MAC Patient Condition Mental Status/LOC: Same as Preop Cardiovascular: Satisfactory Nausea/Vomiting: Absent Respiratory: Satisfactory Pain: Controlled Complications: Absent Post Op Complications Complications None Follow Up Care/Instructions Patient Instructions None needed. Anesthesiology Discharge Order Discharge Order Patient is doing well, no complaints, stable vital signs, no apparent adverse anesthesia problems. No complications reported per nursing. NEO COX CRNA Sep 07, 2021 13:21
[2021-09-07 13:25] VITALS: BP 101/66
[2021-09-07 13:30] VITALS: BP 101/66
--- NOTE | 2021-09-07 13:32 | Progress Note-Post Operative ---
Post-Operative Progess Note Surgeon (s)/Dixonac Operator (s) Surgeon KISHAN VELASQUEZ MD Dixonac Operator: none Pre-Operative Diagnosis screening colo Post-Operative Diagnosis mild chronic stage 2 ext and int hemorrhoids. Procedure & Operative Findings Date of Procedure 09/07/21 Procedure Performed/Findings colonoscopy Anesthesia Type mac Estimated Blood Loss Estimated blood loss (mL): minimal Specimens/Packing Specimens Removed none KISHAN VELASQUEZ MD Sep 07, 2021 13:32
[2021-09-07 14:00] VITALS: BP 109/70
--- NOTE | 2021-09-07 17:51 | OPERATIVE REPORT ---
DATE OF SERVICE: 09/07/2021 ATTENDING PRIMARY CARE PHYSICIAN: Jaylin Christy DO. PREOPERATIVE DIAGNOSIS: Screening colonoscopy. POSTOPERATIVE DIAGNOSES: Mild chronic stage II external and internal hemorrhoids. PROCEDURE PERFORMED: Colonoscopy. SURGEON: Kishan Velasquez MD. ANESTHESIA: Monitored anesthesia care. ESTIMATED BLOOD LOSS: Minimal. FINDINGS: Mild chronic stage II external and internal hemorrhoids. DISPOSITION: The patient tolerated the procedure well. INDICATIONS FOR PROCEDURE: The patient is a 65-year-old male referred over to us for a screening colonoscopy. His last one was approximately 16 years ago. He states that he is otherwise doing well. He has occasional episodes of constipation. He does not report any diarrhea as well as no red blood per rectum nor any dark tarry stools. He also does not report any family history of colon cancer. DESCRIPTION OF PROCEDURE: The patient was brought to the endoscopy suite and laid in the left lateral decubitus position. After adequate IV pain and sedative medications and monitored anesthesia care, a digital rectal examination was performed. Mild chronic stage II external and internal hemorrhoids were identified, which were not actively edematous nor inflamed and no bleeding. Normal sphincter tone was felt and there were no palpable masses. Prostate gland was palpable and appeared normal. The endoscope was then intubated to the anus and rectum gently insufflated. The endoscope was then advanced to the valves of Bragg of the rectum with no polyps or any neoplasms identified. We then proceeded through the sigmoid colon, where no diverticulosis identified. The endoscope was then advanced to the remainder of the descending, transverse and ascending colon to the cecum, which were normal. There were no polyps or any neoplasms identified throughout the colon or rectum. The endoscope was then slowly withdrawn while taking a second look and suctioning of residual air with no additional findings. The patient tolerated the procedure well. We will recommend continued medical management with a high-fiber diet with a fiber supplement, which should equal or exceed 30 grams daily as well as significant amounts of water to promote soft stools on a daily basis. If he is asymptomatic, he does not need another colonoscopy for another 10 years. Job ID: [id number] DocumentID: [id number] Dictated Date: 09/07/2021 13:23:01 Refrigeration Plant Cork Insulator Date: 09/07/2021 17:50:59 Dictated By: KISHAN VELASQUEZ MD
== END 2021-09-07 14:10 | disposition home or self-care (01) ==
LOC: ENDO 10:25
PROVIDERS: ATTEND Surgery
DX: Z12.11 Encounter for screening for malignant neoplasm of colon (principal); K64.1 Second degree hemorrhoids; K64.4 Residual hemorrhoidal skin tags; Z79.82 Long term (current) use of aspirin

== ENCOUNTER → 2021-09-12 | Outpatient (CLI) | payer MEDICARE, OTHER ==
[~2021-09-12] MED LIST changes: +CATHETER FLUSH 10 ML SYR IVP PRN
[2021-09-12 08:46] VITALS: BP 107/69
--- NOTE | 2021-09-12 11:42 | Cardiology Stress Test Report ---
Stress Test Report Date of Procedure/Referring: Date of Procedure: Sep 12, 2021 PCP Summer Walls MD Admitting Physician Jaylin Christy DO Indications: HTN Baseline Heart Rate: 66 Baseline Blood Pressure: Blood Pressure Systolic: 107 Blood Pressure Diastolic: 69 Vital Signs Date Time Temp Pulse Resp B/P (MAP) Pulse Ox O2 Delivery O2 Flow Rate FiO2 09/12/21 08:46 71 20 107/69 (82) 99 Room Air Baseline Vital Signs Vital Signs Date Time Temp Pulse Resp B/P (MAP) Pulse Ox O2 Delivery O2 Flow Rate FiO2 09/12/21 08:46 71 20 107/69 (82) 99 Room Air Baseline EKG: Baseline EKG: NSR Summary: After explaining the procedure and details to the patient, he signed the consent and was brought to the stress nuclear laboratory. Patient exercised on standard Khoa protocol, EKG, heart rate and blood pressure were monitored continuously, resting and stress doses of radio tracer were injected, imaging was acquired and reviewed in the short axis, horizontal long axis and vertical long axis views Patient was able to exercise for a total of 8 minutes on Khoa protocol, METs 9.7 Maximum heart rate 137 Maximum blood pressure 177/80 Stress EKG, Minimal nondiagnostic changes Recovery EKG, Return to baseline TID: 0.95 SSS: 5 SDS: 5 EF: 69 Conclusion: 1. Good exercise tolerance for a total of 8 minutes on standard Khoa protocol, 9.7 METS achieving 88% of maximal expected heart rate 2. Appropriate heart rate and blood pressure response to exercise return to baseline during recovery 3. Nondiagnostic EKG changes with exercise return to baseline during recovery 4. Mild reversible ischemia involving the mid to apical inferior wall and inferolateral wall with diaphragmatic attenuation 5. Normal left ventricular size, EF 69% SUMMER WALLS MD Sep 12, 2021 11:42
== END ==
LOC: CARD 06:42
PROVIDERS: ATTEND Internal Medicine Cardiovascular Disease
DX: I10 Essential (primary) hypertension (principal); I25.10 Atherosclerotic heart disease of native coronary artery without angina pectoris
CPT/HCPCS: 78452; 93017; A9502

== ENCOUNTER 2021-09-21 08:00 | Day surgery (SDC) | payer MEDICARE, OTHER ==
[2021-09-21] VITALS (11 sets, daily range): BP systolic 100–134; BP diastolic 65–83
[~2021-09-21] VITALS: Ht 167.6 cm; Wt 79.5 kg
[2021-09-21 07:35] LABS: HEMATOCRIT 41 % (40-54); HEMOGLOBIN 14.1 g/dL (13.3-17.7); MEAN CORPUSCULAR HEMOGLOBIN 32 pg (25-34); MEAN CORPUSCULAR HGB CONC 35 g/dL (32-36); MEAN CORPUSCULAR VOLUME 93 fL (80-99); PLATELET COUNT 225 10^3/uL (130-400); WHITE BLOOD COUNT 6.5 10^3/uL (4.3-11.0)
[2021-09-21 07:44] LABS: BILIRUBIN,URINE NEGATIVE (NEGATIVE); CLARITY,URINE CLEAR; COLOR,URINE YELLOW; GLUCOSE, URINE (UA) NEGATIVE (NEGATIVE); KETONES,URINE NEGATIVE (NEGATIVE); LEUKOCYTE ESTERASE ,URINE NEGATIVE (NEGATIVE); NITRITE,URINE NEGATIVE (NEGATIVE); PH,URINE 5.5 (5-9); PROTEIN,URINE NEGATIVE (NEGATIVE)
[2021-09-21 07:47] LABS: PROTHROMBIN TIME PATIENT 13.8 SEC (12.2-14.7)
[2021-09-21 07:56] LABS: ALBUMIN 4.2 GM/DL (3.2-4.5); BILIRUBIN,TOTAL 0.4 MG/DL (0.1-1.0); CALCIUM 9.1 MG/DL (8.5-10.1); CREATININE SERUM 0.79 MG/DL (0.60-1.30); POTASSIUM 3.5 MMOL/L (3.6-5.0); TOTAL PROTEIN 6.6 GM/DL (6.4-8.2)
[2021-09-21 07:59] LABS: BACTERIA,URINE NEGATIVE /HPF
[~2021-09-21 08:00] MED LIST changes: +ASPI-1238 PO; -CATHETER FLUSH 10 ML SYR IVP PRN; +CYAN10007 PO; +DICL100G13 TP; +HEParin (CATH LAB) 2,000 ML IV ONE; +HEParin 1000 UNIT/ML (10ML VIAL) FOR BOLUS ONE; +LIDOCAINE 1% INJ 50 ML (XYLOCAINE) VIAL ONE; +LORA10CA PO; +MIDAZOLAM 5 MG/5 ML (VERSED) VIAL ONE; +MULT-1136 PO; +NITRO DRIP 25000 MCG/D5W 0 ML IV ONE; +NS IV 1000 ML 1,000 ML IV SCH; +NS IV 1000 ML 1,000 ML ONE; +PSEU-182 PO; +VERAPAMIL 5 MG/2 ML (CALAN) VIAL IV ONE; +fentaNYL INJ 100 MCG/2 ML AMP ONE
--- NOTE | 2021-09-21 08:21 | Conscious Sedation/ASA ---
Conscious Sedation Pre-Proced Time 08:21 ASA Score 3 For ASA 3 and 4: Consider anesthesia and medical clearance. Also, for patients with a history of failed moderate sedation consider anesthesia. Airway Lungs Heart ASA score ASA 1: a normal healthy patient ASA 2: a patient with a mild systemic disease (mid diabetes, controlled hypertension, obesity x ASA 3: a patient with a severe systemic disease that limits activity (angina, COPD, prior Myocardial infarction) ASA 4: a patient with an incapacitating disease that is a constant threat to life (CHF, renal failure) ASA 5: a moribund patient not expected to survive 24 hrs. (ruptured aneurysm) ASA 6: a declared brain- patient whose organs are being harvested. For emergent operations, add the letter E after the classification Mallampati Classification Grade 3 Sedation Plan Analgesia, Amnesia, Plan communicated to team members, Discussed options with patient/fam, Discussed risks with patient/fam The patient is an appropriate candidate to undergo the planned procedure, sedation, and anesthesia. The patient immediately re-assessed prior to indication. SUMMER LARA MD Sep 21, 2021 08:21
--- NOTE | 2021-09-21 08:21 | Diagnostic Imaging Report ---
Indication: Heart catheterization. Time of Exam: 7:55 AM Correlation is made with prior chest 01/19/2021. Finding: The heart size is normal. The pulmonary vascularity is unremarkable. The lungs are clear. No infiltrate, effusion or pneumothorax is detected. Impression: No acute cardiopulmonary process is detected. Dictated by: Dictated on workstation # [id number]
--- NOTE | 2021-09-21 08:54 | Cardiac Cath Report ---
Cardiac Cath Report Physician (s)/Program Admin (s) Physician SUMMER LARA MD Pre-Procedure Diagnosis Pre-Procedure Diagnosis: Coronary artery disease Post-Procedure Note Procedure Start Date: Sep 21, 2021 Name of Procedure: Left heart catheterization Findings/Procedure Note PROCEDURE NOTE: 65-year-old gentleman with history of coronary artery disease, multiple intervention in the past, has been having accelerating angina, scheduled for cardiac catheterization possible PTCA. After explaining the procedure to the patient, all pros and cons were explained, all questions were answered. The patient signed the consent and then he was placed on the cardiac catheterization laboratory. Groin was prepped SL fashion local anesthesia was used. Sheath placed in the right femoral artery. Tyler right and left catheter were used to access the coronary system. Tyler right catheter was prolapsed to the left ventricular cavity, no left ventriculogram was done, pressure was measured. Pullback LV to aorta was done. At the end of the procedure the sheath was removed. Closure device was deployed FINDINGS: Hemodynamics LV 103/10, end-diastolic pressure of 10 Aorta 109/60 mean of 81 ANATOMY: Left Main is free of obstructive disease Left Anterior Descending has patent stent in the midportion followed by mild myocardial bridging otherwise nonobstructive disease Left Circumflex is nondominant artery with mild disease nonobstructive disease Right Coronary Artery is large dominant artery with patent stent in the distal right coronary artery mild in-stent restenosis LV Gram was not done, pressure was measured CONCLUSION: 1. Patent stent in the mid LAD with mild myocardial bridging beyond the stent, mild disease nonobstructive disease. 2. Large dominant right coronary artery with patent distal stent with mild in- stent restenosis 3. Normal left ventricular end-diastolic pressure DISCUSSION AND RECOMMENDATION: Medical therapy is recommended no intervention is warranted Anesthesia Type: Conscious Sedation Estimated blood loss (mL): 15 ml Contrast Amount: 30 ml Total Radiation Dose: 247 mGy Post-Procedure Diagnosis Post-operative diagnosis: Chest pain Coronary artery disease Hypertension Hyperlipidemia SUMMER LARA MD Sep 21, 2021 08:54
--- NOTE | 2021-09-21 08:55 | Discharge Inst-Post CATH ---
Discharge Inst-CATH/EP Problems Reviewed?: Yes Post Cardiac Cath/EP D/C Inst Follow Up/Plan Appointment with Dr. Walls's office in 4 weeks <b>CARDIAC CATH/EP PROCEDURE DISCHARGE INSTRUCTIONS</b> ACTIVITY * Go Home directly and rest. * Limit activity of the leg (or wrist if it was used) for 7 days including aerobics, swimming, jogging, bicycling, etc. * Restrict stair-climbing for 7 days if possible, if not, climb up with your non-cath leg, then bring together on the same step. * Avoid lifting, pushing, pulling or excessive movement of the affected extremity for 7 days. * Customary sexual activity may be resumed after 2 days-use caution not to use a position that strains or causes pain to the affected extremity. * No driving for 24 hours. * NO SMOKING. * Avoid straining for bowel movements for 7 days. * Gentle walking on level ground is allowed. * Returning to work will depend on the type of procedure and the results. Your doctor will discuss this with you. CALL YOUR DOCTOR FOR ANY OF THE FOLLOWING: *If bleeding from the puncture site occurs- Apply gentle pressure to site with clean cloth and call your doctor or EMS. * If a knot or lump forms under the skin, increases in size, or causes pain. * If bruising appears to be worsening or moving further down your leg instead of disappearing. * Temperature above 101 F. CARE OF YOUR GROIN INCISION; * Bruising or purple discoloration of the skin near the puncture site is common. * You may shower only, no bathtub bathing for 5 days. Be careful to avoid slipping as your leg may feel stiff. * If a closure device was used on your femoral artery, please see the attached guide regarding care of the device and your leg. * Leave dressing on FOR 24 hours. CARE OF YOUR WRIST INCISION; * Bruising or purple discoloration of the skin near the puncture site is common. * You may shower. * DO NOT submerge wrist. * Leave dressing on FOR 24 hours. SUMMER WALLS MD Sep 21, 2021 08:55
[2021-09-21] MEDS ORDERED: PATIENT MAY USE OWN MEDS, ALL PO SCH (09:00)
[2021-09-21] MEDS ORDERED: NS IV 1000 ML 1,000 ML IV SCH (09:00)
== END 2021-09-21 13:10 ==
LOC: CATH 08:00 → SDC 09:04 → CATH 13:10
PROVIDERS: ATTEND Internal Medicine Cardiovascular Disease
DX: I25.10 Atherosclerotic heart disease of native coronary artery without angina pectoris (principal); I10 Essential (primary) hypertension; I65.23 Occlusion and stenosis of bilateral carotid arteries; I35.1 Nonrheumatic aortic (valve) insufficiency; I63.9 Cerebral infarction, unspecified; E78.5 Hyperlipidemia, unspecified; E78.2 Mixed hyperlipidemia; Z86.73 Personal history of transient ischemic attack (TIA), and cerebral infarction without residual deficits; Z79.899 Other long term (current) drug therapy
CPT/HCPCS: 71045; 80053; 80061; 81000; 85027; 85610; 85730; 87081; 93005; 93458; C1760; C1894; 36415

== ENCOUNTER 2022-05-24 05:32 | Outpatient (CLI) | payer MEDICARE, OTHER ==
[~2022-05-24] VITALS: Ht 167.7 cm; Wt 79.1 kg
[~2022-05-24 05:32] MED LIST changes: -DICL100G27 TP; +DICL100G32 TP; -HEParin (CATH LAB) 2,000 ML IV ONE; -HEParin 1000 UNIT/ML (10ML VIAL) FOR BOLUS ONE; -LIDOCAINE 1% INJ 50 ML (XYLOCAINE) VIAL ONE; -MIDAZOLAM 5 MG/5 ML (VERSED) VIAL ONE; -NITRO DRIP 25000 MCG/D5W 0 ML IV ONE; -NS IV 1000 ML 1,000 ML IV SCH; -NS IV 1000 ML 1,000 ML ONE; -VERAPAMIL 5 MG/2 ML (CALAN) VIAL IV ONE; -fentaNYL INJ 100 MCG/2 ML AMP ONE
[2022-05-25] MEDS ORDERED: POLY17PO6 PO (14:23)
[2022-05-25] MEDS ORDERED: PREG75CA PO (14:23)
[2022-05-25] MEDS ORDERED: ESCI5TAB PO (14:23)
== END 2022-05-25 14:47 | disposition home or self-care (01) ==
LOC: PREOP 05:32
PROVIDERS: ATTEND Orthopaedic Surgery
DX: Z01.818 Encounter for other preprocedural examination (principal)

== ENCOUNTER 2022-05-31 09:16 | Day surgery (SDC) | payer MEDICARE, OTHER ==
--- NOTE | 2022-05-23 09:22 | HISTORY AND PHYSICAL ---
ADMISSION HISTORY AND PHYSICAL This will be for outpatient surgery on 05/31/2022 for right rotator cuff repair. HISTORY: The patient is a 66-year-old right hand dominant gentleman with complaints of progressively worsening right shoulder pain and weakness. He underwent an MRI, which revealed a full-thickness supraspinatus tear. He reports pain and weakness in the shoulder. He reports difficulty with sleep. He has undergone treatment with injections, home exercise program, and activity modifications without relief. Due to functional impairment, failure to improve with conservative measures, the patient elected to proceed with surgical intervention. REVIEW OF SYSTEMS: No chest pain, no shortness of breath. No dysuria. PAST MEDICAL HISTORY: Diabetes, coronary artery disease, hypercholesterolemia, depression, anemia, degenerative joint disease, brain tumor, seizures, stroke. PRIMARY CARE PROVIDER: Dr. Christy. PAST SURGICAL HISTORY: Left elbow, bilateral foot, right thumb, bilateral eyes, brain tumor removal, coronary stent placement, herniorrhaphy, right ankle, right total knee arthroplasty, bilateral carpal tunnel, left shoulder rotator cuff repair, left ulnar nerve transposition, left clavicle, left forearm, right peroneus tendon repair. SOCIAL HISTORY: The patient reports occasional alcohol use. Denies tobacco use. FAMILY HISTORY: Significant for cancer, cardiovascular disease, celiac disease, diabetes. MEDICATIONS: Nitroglycerin, aspirin, topiramate, Voltaren, phenobarbital, cyanocobalamin, MiraLax, atorvastatin, Lyrica, Lexapro. ALLERGIES: TUNA and LAMOTRIGINE. PHYSICAL EXAMINATION: GENERAL: The patient is well-developed, well-nourished, in no acute distress. HEENT: Normocephalic, atraumatic. Pupils equal, round, reactive to light. Oropharynx is clear. NECK: Supple. No lymphadenopathy. LUNGS: Clear to auscultation bilaterally. HEART: Regular rate and rhythm. ABDOMEN: Soft, nontender, nondistended. EXTREMITIES: The right shoulder demonstrates symmetric forward elevation, external and internal rotation. He has weakness with abduction and external rotation. Positive Neer's and positive Hawkin sign. IMPRESSION: Right rotator cuff tear. PLAN: Right shoulder arthroscopy with open rotator cuff repair. The risks, benefits, options, ramifications and recovery have been discussed at length with the patient. He understands and wishes to proceed. This will be for outpatient surgery on 05/31/2022. Job ID: [id number] DocumentID: [id number] Dictated Date: 05/15/2022 09:26:28 Gandy Dancer Date: 05/15/2022 10:53:00 Dictated By: ALFONSO ETIENNE MD
[2022-05-31] VITALS (11 sets, daily range): BP systolic 114–168; BP diastolic 69–101
[~2022-05-31] VITALS: Ht 167.7 cm; Wt 79.1 kg
[~2022-05-31 09:16] MED LIST changes: +ESCI5TAB PO; +PREG75CA PO; +oxyCODONE/APAP 7.5-325 MG (PERCOCET 7.5) TABLET PO PRN
--- NOTE | 2022-05-31 09:23 | Progress Note-Pre Operative ---
Pre-Operative Progress Note Date of Available H&P: May 15, 2022 Date H&P Reviewed: May 31, 2022 Time H&P Reviewed: 07:11 Changes from last HP none Pre-Operative Diagnosis: right rotator cuff tear ALFONSO ETIENNE MD May 31, 2022 09:23
--- NOTE | 2022-05-31 09:23 | Progress Note-Post Operative ---
Post-Operative Progess Note Surgeon (s)/High School Combination Teacher (s) Surgeon ALFONSO ETIENNE MD High School Combination Teacher: Perfecto Langford Pre-Operative Diagnosis right rotator cuff tear Post-Operative Diagnosis right rotator cuff and SLAP tears Procedure & Operative Findings Date of Procedure 05/31/22 Procedure Performed/Findings right shoulder arthroscopic acromioplasty, biceps tenotomy and open rotator cuff repair Anesthesia Type GETA Estimated Blood Loss Estimated blood loss (mL): minimal Specimens/Packing Specimens Removed none Packing: none ALFONSO ETIENNE MD May 31, 2022 09:23
[2022-05-31] MEDS ORDERED: SEVOFLURANE (ULTANE) 15 ML INHAL SOLN ONE ×2 (09:27→11:52)
[2022-05-31] MEDS ORDERED: ROCURONIUM 10 MG/ML 5 ML SYRINGE IV ONE (09:27)
[2022-05-31] MEDS ORDERED: fentaNYL INJ 100 MCG/2 ML AMP ONE (09:27)
[2022-05-31] MEDS ORDERED: proPOfol 200 MG/20 ML (DIPRIVAN) VIAL IV ONE (09:27)
[2022-05-31] MEDS ORDERED: ONDANSETRON 4 MG/2 ML (SDV) Z0FRAN ONE (09:27)
[2022-05-31] MEDS ORDERED: MIDAZOLAM 2 MG/2 ML (VERSED) VIAL ONE (09:27)
[2022-05-31] MEDS ORDERED: LIDOCAINE PF 2% 5 ML (XYLOCAINE) VIAL ONE (09:27)
[2022-05-31] MEDS: LACTATED RINGERS 1,000 ML IV PRN ×2 (09:50→12:51)
[2022-05-31] MEDS ORDERED: ROPIVACAINE 5MG/ML 30ML VIAL ONE (09:56)
[2022-05-31] MEDS ORDERED: ceFAZolin INJECTION 2,000 MG in NS (IVPB) 50 ML IV ONE (10:00)
[2022-05-31] MEDS ORDERED: BUPIVACAINE 0.25% 30 ML (SENSORCAINE) VIAL ONE (10:24)
[2022-05-31] MEDS ORDERED: morphine PF (DURAMORPH) 10 MG/10 ML AMP ONE (10:24)
[2022-05-31] MEDS ORDERED: NEOSTIGMINE (BLOXIVERZ ) 1 MG/1ML 10 ML VIAL ONE (11:32)
[2022-05-31] MEDS ORDERED: GLYCOPYRROLATE 0.2 MG/ML (ROBINUL) 2 ML VIAL ONE (11:32)
[2022-05-31] MEDS ORDERED: morphine PF (DURAMORPH) 10 MG/10 ML AMP INJ ONE (11:34)
[2022-05-31] MEDS ORDERED: BUPIVACAINE 0.25% 30 ML (SENSORCAINE) VIAL INJ ONE (11:36)
[2022-05-31] MEDS ORDERED: ONDANSETRON 4 MG/2 ML (SDV) Z0FRAN IVP PRN (12:15)
[2022-05-31] MEDS ORDERED: HYDROmorphone 2 MG/ML VIAL (DILAUDID) IV ONE (12:15)
--- NOTE | 2022-05-31 13:36 | Anesthesia-General Post-Op ---
General Patient Condition Mental Status/LOC: Same as Preop Cardiovascular: Satisfactory Nausea/Vomiting: Absent Respiratory: Satisfactory Pain: Controlled Complications: Absent Post Op Complications Complications None Follow Up Care/Instructions Patient Instructions None needed. Anesthesia/Patient Condition Patient Condition Patient is doing well, no complaints, stable vital signs, no apparent adverse anesthesia problems. No complications reported per nursing. D/C home per [facility] Criteria: Yes CHRISTINA BEY CRNA May 31, 2022 13:36
--- NOTE | 2022-05-31 19:30 | OPERATIVE REPORT ---
DATE OF SERVICE: 05/31/2022 PREOPERATIVE DIAGNOSIS: Right shoulder chronic rotator cuff tear. POSTOPERATIVE DIAGNOSES: 1. Right shoulder chronic rotator cuff tear. 2. Right shoulder SLAP tear. PROCEDURES: 1. Right shoulder open rotator cuff repair. 2. Right shoulder arthroscopic biceps tenotomy. 3. Right shoulder arthroscopic acromioplasty. SURGEON: Ian Etienne MD. HIGH SCHOOL MATHEMATICS TEACHER: Perfecto Langford, who assisted throughout the procedure and closed the incisions. ANESTHESIA: General endotracheal by Jose Manuel Good CRNA. ESTIMATED BLOOD LOSS: Minimal. DRAINS: None. COMPLICATIONS: None. POSTOPERATIVE PLAN: Sling wear and passive range of motion for 4 weeks. The patient was transported to the recovery room awake and in stable condition. STATEMENT OF MEDICAL NECESSITY: The patient is a 66-year-old right hand dominant gentleman with complaints of right shoulder pain and weakness. An MRI revealed a full-thickness supraspinatus tear. He had tried injections, anti-inflammatories, rest and therapy without relief. Due to functional impairment and failure to improve with conservative measures, the patient elected to proceed with surgical intervention. Examination under anesthesia revealed forward elevation 170 degrees, external rotation of 85 degrees, internal rotation of 75 degrees. ORTHOSTATIC FINDINGS: Demonstrated a type 2 SLAP tear. The patient had a 90% tear in the anterior aspect of the supraspinatus. The remainder of the rotator cuff was intact. The remainder of the labrum was intact. There was no significant glenoid or humeral head articular wear. Subacromial space demonstrated moderate bursitis, sloping in the anterolateral acromion. DESCRIPTION OF PROCEDURE: After risks and benefits of the procedure were discussed and questions were answered, an informed consent was signed and placed on the chart. The operative site was confirmed in the preoperative holding area initialed by surgeon. The patient was then transferred to the operating room and after adequate level of general endotracheal anesthetic was obtained, timeout was called, confirming the operative site. An examination under anesthesia was performed. The above findings noted. The right shoulder and upper extremity were prepped and draped in the usual sterile fashion. The shoulder joint was injected with 20 mL of fluid as was the subacromial space. A standard posterior portal was placed under direct visualization, anterior portal was created in the interval between the biceps, subscapularis and glenoid. The biceps anchor was released. The stump was debrided with a shaver. The scope was redirected into the subacromial space. A lateral portal was created. A bursectomy was performed and the acromion was planed to a flat type 1 acromion. The lateral portal was then extended. The deltoid was split in line with its fibers, leaving it attached to the acromion. The rotator cuff tear was completed and a bleeding bony bed was prepared just off the articular surface. A single corkscrew anchor was placed and a modified Rick-Tristan repair was performed with an excellent repair obtained. No undue tension was noted with the arm at the side. The wound was copiously irrigated. The deltoid was repaired in [id number] fashion using #2 FiberWire in [id number] interrupted fashion. The wound was further irrigated. A 3-0 Vicryl was used to reapproximate subcutaneous tissue. Skin was closed with 4-0 nylon in a running alternating horizontal mattress fashion. The portal sites were closed with 4-0 nylon in a simple interrupted fashion as well. The shoulder joint was injected with Duramorph. The portal sites and incisions were infiltrated with plain Marcaine. A soft dressing was applied. The patient was transferred to recovery room awake and stable condition. Job ID: [id number] DocumentID: [id number] Dictated Date: 05/31/2022 12:03:30 Farm Equipment Maintenance Supervisor Date: 05/31/2022 19:29:00 Dictated By: IAN ETIENNE MD
== END 2022-05-31 14:00 | disposition home or self-care (01) ==
LOC: SDC 09:16
PROVIDERS: ATTEND Orthopaedic Surgery
DX: M75.111 Incomplete rotator cuff tear or rupture of right shoulder, not specified as traumatic (principal); S43.431A Superior glenoid labrum lesion of right shoulder, initial encounter; X58.XXXA Exposure to other specified factors, initial encounter
CPT/HCPCS: 23412; 29823; 29826; 87081; C1713

== ENCOUNTER → 2023-01-11 | Outpatient (CLI) | payer MEDICARE, OTHER ==
[~2023-01-11] MED LIST changes: -oxyCODONE/APAP 7.5-325 MG (PERCOCET 7.5) TABLET PO PRN
--- NOTE | 2023-01-11 14:10 | Diagnostic Imaging Report ---
PROCEDURE: MRI lumbar spine. TECHNIQUE: Multiplanar, multisequence MRI of the lumbar spine was performed without contrast. INDICATION: Chronic back pain, history of spinal injections. COMPARISON with lumbar MR 02/11/2015 FINDINGS: Lumbar statures stable and normal. There is degenerative disc space narrowing, endplate sclerosis and osteophytes throughout the lumbar spine, chronic. No paravertebral mass, hemorrhage or fluid collection. No marrow edema or acute signal pathology aside from mild degenerative Modic type I edematous changes at the L2 L1 endplate articulation anteriorly and eccentric to the right. No fracture. Lower thoracic cord and conus appeared normal. The ligamentous structures intact. There are chronic nonedematous bilateral L5 spondylolysis defects without listhesis, stable. T12-L1: Osteophyte disc material effaces the ventral thecal sac with a borderline mild canal stenosis, stable. No significant foraminal narrowing. L1-L2: Osteophyte disc material anterior greater than posterior at this level is stable. No resultant stenosis. L2-L3: Osteophyte disc material predominantly directed anteriorly results in no significant canal, foraminal or recess stenosis. L3-L4: This level and disc unremarkable. No stenosis. L4-L5: There is mild disc desiccation and disc bulge with endplate osteophytes. There is thickened ligamenta flava and left greater than right facet arthrosis. Predominantly owing to the posterior element disease which has significantly progressed in the interim there is mild spinal canal stenosis with mild to moderate left foraminal narrowing. The right foramen is very mildly stenosed. L5-S1: Disc desiccation, bulge and endplate osteophytes result in moderate to severe right and moderate left foraminal stenoses, increased in the interim. IMPRESSION: Progressive right greater than left L5-S1 foraminal stenosis, increased L4-L5 canal and foraminal stenosis owing to increased facet disease. Chronic L5 spondylolysis defects with no acute bony pathology. Dictated by: Dictated on workstation # [id number]
== END ==
LOC: RAD 13:08
PROVIDERS: ATTEND Pain Medicine Interventional Pain Medicine
DX: M48.07 Spinal stenosis, lumbosacral region (principal); M47.26 Other spondylosis with radiculopathy, lumbar region
CPT/HCPCS: 72148

== ENCOUNTER → 2023-02-27 | Outpatient (CLI) | payer MEDICARE, OTHER ==
[~2023-02-27] MED LIST changes: -DICL100G13 TP; +DICL100G60 TP; +HOLD METFORMIN - RECEIVED CONTRAST 20 ML VIAL IV SCH; +IOHEXOL 350 MG/ML 100 ML (OMNIPAQUE 350) VIAL IV ONE; +NS 100 ML (IVPB) BAG IV ONE
[2023-02-27 09:19] LABS: CREATININE SERUM 0.77 MG/DL (0.60-1.30)
--- NOTE | 2023-02-27 10:19 | Diagnostic Imaging Report ---
PROCEDURE: CT head with and without contrast. TECHNIQUE: Multiple contiguous axial images were obtained through the brain before and after the administration of intravenous contrast. Auto Exposure Controls were utilized during the CT exam to meet ALARA standards for radiation dose reduction. INDICATION: Right-sided retroauricular head pain previous brain mass resected remotely. Compared with head CT 05/17/2019. Stable right frontal craniectomy again noted. Deep to the craniectomy site, there is some chronic dural thickening is an expected finding. No findings of residual or recurrent neoplasm. No intra or extra-axial mass. Following contrast, there was no abnormal parenchymal or meningeal enhancement. No focal nor generalized cerebral edema. Normal enhancement of the major dural venous sinuses is present. There is no mastoid effusion. Middle ear cavities clear. No acute calvarial pathology. The orbits and paranasal sinuses unremarkable. IMPRESSION: Stable postoperative findings. No evidence of neoplasm, hemorrhage, edema, sinusitis or acute abnormalities. Dictated by: Dictated on workstation # [id number]
== END ==
LOC: RAD 08:09
PROVIDERS: ATTEND Family Medicine
DX: R51.9 Headache, unspecified (principal); G89.29 Other chronic pain; Z87.898 Personal history of other specified conditions; Z98.890 Other specified postprocedural states
CPT/HCPCS: 36415; 70470; 82565; 84520